=== PATIENT | female | born 1945 | race Caucasian/White ===

== ENCOUNTER 2017-10-02 23:19 | Observation (INO) | payer OTHER ==
[2017-10-03 00:38] LABS: INR 0.95; PROTHROMBIN TIME 12.8 SECONDS (12.4-14.5)
[2017-10-03 00:39] LABS: PARTIAL THROMBOPLASTIN TIME 29.1 SECONDS (26.8-37.9)
[2017-10-03 00:42] LABS: BASO # 0.1 10^3/uL (0.0-0.2); BASO % 0.9 % (0.0-1.0); EOS # 0.2 10^3/uL (0.0-0.50); EOS % 1.6 % (0.0-3.0); HEMATOCRIT 36.2 % (36.0-47.0); HEMOGLOBIN 12.4 g/dl (12.0-15.5); IMMATURE GRANULOCYTE % 0.4 % (0-3.0); LYMPH # 1.8 10^3/uL (1.5-4.5); LYMPH % 13.4 % (24.0-44.0); MEAN CORPUSCULAR HEMOGLOBIN 30.2 pg (27.0-33.0); MEAN CORPUSCULAR HGB CONC 34.3 g/dl (32.0-36.5); MEAN CORPUSCULAR VOLUME 88.3 fl (80.0-96.0); MONO # 1.3 10^3/uL (0.0-0.8); MONO % 9.4 % (0.0-5.0); NEUTROPHILS # 10.2 10^3/uL (1.8-7.7); NEUTROPHILS % 74.3 % (36.0-66.0); PLATELET COUNT, AUTOMATED 291 10^3/uL (150-450); RED CELL DISTRIBUTION WIDTH 14.8 % (11.5-14.5); WHITE BLOOD COUNT 13.8 10^3/uL (4.0-10.0)
[2017-10-03 00:48] LABS: ANION GAP 9 MEQ/L (8-16); BLOOD UREA NITROGEN 26 MG/DL (7-18); CALCIUM LEVEL 9.4 MG/DL (8.8-10.2); CARBON DIOXIDE LEVEL 24 MEQ/L (21-32); CHLORIDE LEVEL 105 MEQ/L (98-107); CPK CREATINE PHOSPHOKINASE 176 U/L (26-192); CREATININE FOR GFR 1.12 MG/DL (0.55-1.30); FREE T4 1.18 NG/DL (0.76-1.46); GLOMERULAR FILTRATION RATE 50.9 (>39); GLUCOSE, FASTING 142 MG/DL (70-100); MAGNESIUM LEVEL 2.2 MG/DL (1.8-2.4); POTASSIUM SERUM 3.6 MEQ/L (3.5-5.1); SODIUM LEVEL 138 MEQ/L (136-145); TROPONIN I < 0.02 NG/ML (< 0.10)
[2017-10-03 00:50] LABS: LACTIC ACID SEPSIS PROTOCOL 2.4 MMOL/L (0.4-2.0)
[2017-10-03 00:54] LABS: CK-MB VALUE MASS 1.7 NG/ML (<3.6); MB/CK RELATIVE INDEX 0.96 (< OR =4)
[2017-10-03] MEDS ORDERED: PERCOCET 5MG/325MG TAB PO (03:30)
[2017-10-03] MEDS ORDERED: MORPHINE 4 MG/ML 1ML VIAL/SYRINGE (J2270) IV (03:30)
[2017-10-03] MEDS ORDERED: ONDANSETRON 4MG/2ML VIAL (J2405) IV (03:30)
[2017-10-03] MEDS ORDERED: ACETAMINOPHEN TAB 650MG DOSE (2X325MG) PO (03:30)
[2017-10-03] MEDS: HEPARIN SOD (PORCINE) 5000 UNITS/ML VIAL SC ×3 (04:57→21:20)
[2017-10-03] MEDS: NS 1,000 ML IV ×2 (05:00→19:57)
[2017-10-03 07:49] LABS: HEMATOCRIT 36.3 % (36.0-47.0); HEMOGLOBIN 12.4 g/dl (12.0-15.5); MEAN CORPUSCULAR HEMOGLOBIN 30.2 pg (27.0-33.0); MEAN CORPUSCULAR HGB CONC 34.2 g/dl (32.0-36.5); MEAN CORPUSCULAR VOLUME 88.5 fl (80.0-96.0); PLATELET COUNT, AUTOMATED 293 10^3/uL (150-450); RED CELL DISTRIBUTION WIDTH 14.7 % (11.5-14.5); WHITE BLOOD COUNT 10.7 10^3/uL (4.0-10.0)
[2017-10-03 08:19] LABS: ANION GAP 6 MEQ/L (8-16); BLOOD UREA NITROGEN 23 MG/DL (7-18); CALCIUM LEVEL 9.3 MG/DL (8.8-10.2); CARBON DIOXIDE LEVEL 26 MEQ/L (21-32); CHLORIDE LEVEL 108 MEQ/L (98-107); CK-MB VALUE MASS 1.3 NG/ML (<3.6); CPK CREATINE PHOSPHOKINASE 162 U/L (26-192); CREATININE FOR GFR 1.01 MG/DL (0.55-1.30); GLOMERULAR FILTRATION RATE 57.4 (>39); GLUCOSE, FASTING 98 MG/DL (70-100); MAGNESIUM LEVEL 2.1 MG/DL (1.8-2.4); SODIUM LEVEL 140 MEQ/L (136-145); TROPONIN I < 0.02 NG/ML (< 0.10)
[2017-10-03 09:30] LABS: ESTIMATED AVERAGE GLUCOSE 117 MG/DL (60-110); HEMOGLOBIN A1c 5.7 %
[2017-10-03 09:36] LABS: KETONE, URINE AUTO RFX NEGATIVE (NEGATIVE); LEUKOCYTE ESTERASE UR AUTO RFX NEGATIVE (NEGATIVE); NITRITE, URINE AUTO RFX NEGATIVE (NEGATIVE); RBC, URINE AUTO RFX 2 /HPF (0-3); SPECIFIC GRAVITY UR AUTO RFX 1.009 (1.002-1.035); SQUAM EPITHELIAL CELL UR AURFX 0 /HPF (0-6); WBC, URINE AUTO RFX 1 /HPF (0-3)
[2017-10-03] MEDS: ATORVASTATIN 20 MG TAB PO (09:57)
[2017-10-03] MEDS: OMEPRAZOLE 20 MG CAP PO (09:57)
[2017-10-03] MEDS: SENOKOT S TAB PO ×2 (09:57→21:20)
[2017-10-03] MEDS: ASCORBIC ACID 500 MG TAB PO (09:58)
[2017-10-03] MEDS: LISINOPRIL 10 MG TAB PO (09:58)
[2017-10-03] MEDS: MAGNESIUM CHLORIDE 64 MG TABCR (SLO MAG) PO (09:58)
[2017-10-04] MEDS: HEPARIN SOD (PORCINE) 5000 UNITS/ML VIAL SC (05:55)
[2017-10-04 06:24] LABS: HEMATOCRIT 35.5 % (36.0-47.0); MEAN CORPUSCULAR HEMOGLOBIN 29.9 pg (27.0-33.0); MEAN CORPUSCULAR HGB CONC 33.8 g/dl (32.0-36.5); MEAN CORPUSCULAR VOLUME 88.5 fl (80.0-96.0); PLATELET COUNT, AUTOMATED 278 10^3/uL (150-450); RED BLOOD COUNT 4.01 10^6/uL (4.00-5.40); RED CELL DISTRIBUTION WIDTH 15.1 % (11.5-14.5); WHITE BLOOD COUNT 9.4 10^3/uL (4.0-10.0)
[2017-10-04 06:42] LABS: ANION GAP 6 MEQ/L (8-16); BLOOD UREA NITROGEN 21 MG/DL (7-18); CALCIUM LEVEL 8.9 MG/DL (8.8-10.2); CARBON DIOXIDE LEVEL 25 MEQ/L (21-32); CHLORIDE LEVEL 111 MEQ/L (98-107); CREATININE FOR GFR 0.87 MG/DL (0.55-1.30); GLOMERULAR FILTRATION RATE > 60.0 (>39); GLUCOSE, FASTING 84 MG/DL (70-100); MAGNESIUM LEVEL 2.1 MG/DL (1.8-2.4); SODIUM LEVEL 142 MEQ/L (136-145)
[2017-10-04] MEDS: MAGNESIUM CHLORIDE 64 MG TABCR (SLO MAG) PO (08:56)
[2017-10-04] MEDS: ATORVASTATIN 20 MG TAB PO (08:56)
[2017-10-04] MEDS: SENOKOT S TAB PO (08:56)
[2017-10-04] MEDS: ASCORBIC ACID 500 MG TAB PO (08:56)
[2017-10-04] MEDS: OMEPRAZOLE 20 MG CAP PO (08:56)
[2017-10-04] MEDS: LISINOPRIL 10 MG TAB PO (08:56)
== END 2017-10-04 12:04 | disposition home or self-care (01) ==
LOC: M ED 23:19 → M ED INP 23:20 → M MSPAV 10-03 10:13
DX: R55 Syncope and collapse (principal); E86.0 Dehydration; Z79.899 Other long term (current) drug therapy; I10 Essential (primary) hypertension; K21.9 Gastro-esophageal reflux disease without esophagitis; Z88.0 Allergy status to penicillin
CPT/HCPCS: 71045

== ENCOUNTER → 2019-04-20 | Outpatient (REF) | payer MEDICARE ==
[~2019-04-20] MED LIST: ATOR1TAB21 PO; CALC600T7 PO; LISI10TA15 PO; LOVE1INJ SC; MAGN64TASA PO; MAGNESIUM OXIDE PO; NAPR-885 PO; OMEP40CA97 PO; PERCOCET PO; TYLE325T5 PO; TYLE500T78 PO; VITA500T PO; VITA500T88 PO
[2019-04-20 16:20] LABS: HEMATOCRIT 41.7 % (36.0-47.0); HEMOGLOBIN 13.5 g/dl (12.0-15.5); MEAN CORPUSCULAR HEMOGLOBIN 30.5 pg (27.0-33.0); MEAN CORPUSCULAR HGB CONC 32.4 g/dl (32.0-36.5); MEAN CORPUSCULAR VOLUME 94.3 fl (80.0-96.0); PLATELET COUNT, AUTOMATED 327 10^3/uL (150-450); RED BLOOD COUNT 4.42 10^6/uL (4.00-5.40); WHITE BLOOD COUNT 9.1 10^3/uL (4.0-10.0)
[2019-04-20 16:59] LABS: ALBUMIN 3.8 GM/DL (3.2-5.2); BILIRUBIN,TOTAL 0.6 MG/DL (0.2-1.0); CALCIUM LEVEL 10.3 MG/DL (8.8-10.2); CHOLESTEROL RISK RATIO 2.043 (<5); CREATININE FOR GFR 0.99 MG/DL (0.55-1.30); GLOMERULAR FILTRATION RATE 58.4 (>39); POTASSIUM SERUM 4.5 MEQ/L (3.5-5.1)
[2019-04-20 17:01] LABS: TOTAL 25(OH) VITAMIN D 55.4 NG/ML (30.0-100.0)
== END ==
LOC: M SFHCCLAY 10:29
PROVIDERS: ATTEND Nurse Practitioner Family
DX: K21.9 Gastro-esophageal reflux disease without esophagitis (principal); I10 Essential (primary) hypertension; E78.49 Other hyperlipidemia; M81.0 Age-related osteoporosis without current pathological fracture

== ENCOUNTER 2020-02-12 11:27 | Emergency (ER) | payer MEDICARE ==
[~2020-02-12] VITALS: Ht 149.9 cm; Wt 53.2 kg
[~2020-02-12 11:27] MED LIST changes: +CALC-212 PO; -CALC600T7 PO; +VITA-243 PO; -VITA500T PO
--- NOTE | 2020-02-12 12:19 | REPVR ---
PROCEDURE INFORMATION: Exam: XR Left Knee Exam date and time: 02/12/2020 11:55 AM Age: 74 years old Clinical indication: Pain; Knee; Left; Additional info: Trauma TECHNIQUE: Imaging protocol: XR Left knee. Views: 4 or more views. COMPARISON: CR Femur 11/08/2013 10:59 AM FINDINGS: Bones/joints: Chondrocalcinosis. Chronic appearing impaction deformity of the medial tibial plateau. Tricompartmental DJD. Diffuse osteopenia. There appears to be a large knee joint effusion. No definite acute fracture. No dislocation. Mild lateral patellar subluxation. Soft tissues: Normal. IMPRESSION: No definite acute fracture is identified. Given the presence of a large knee joint effusion and the limitation due to marked osteopenia, consider further evaluation with CT. Electronically signed by: Criss Kerr On 02/12/2020 12:19:28 PM
--- NOTE | 2020-02-12 13:17 | REPVR ---
PROCEDURE INFORMATION: Exam: CT Left Lower Extremity Without Contrast, Knee Exam date and time: 02/12/2020 12:57 PM Age: 74 years old Clinical indication: Pain; Knee; Left; Additional info: Trauma TECHNIQUE: Imaging protocol: CT of the Left lower extremity without contrast was performed. Exam focused on the knee. Radiation optimization: All CT scans at this facility use at least one of these dose optimization techniques: automated exposure control; mA and/or kV adjustment per patient size (includes targeted exams where dose is matched to clinical indication); or iterative reconstruction. COMPARISON: CR Knee, complete LEFT 02/12/2020 11:46 AM FINDINGS: Bones/joints: Diffuse osteopenia. Chondrocalcinosis. Advanced degenerative change of the medial compartment. Moderate degenerative change of the lateral and patellofemoral compartments. Chronic appearing fracture deformity of the medial tibial plateau. Large knee joint effusion. No acute fracture or dislocation. Soft tissues: Normal. Vasculature: Atherosclerotic vascular calcifications. IMPRESSION: 1. No acute fracture. 2. Tricompartmental DJD, large knee joint effusion, and chondrocalcinosis. 3. Chronic appearing fracture deformity of the medial tibial plateau. Electronically signed by: Criss Kerr On 02/12/2020 13:16:34 PM
[2020-02-12] MEDS ORDERED: IBUPROFEN 400 MG TAB PO ONE (14:45)
[2020-02-12 15:01] VITALS: BP 152/75
== END 2020-02-12 15:33 | disposition home or self-care (01) ==
LOC: M ED 11:27 → EDBD 11:27 → M ED 15:33
DX: Z87.81 Personal history of (healed) traumatic fracture (principal); M25.462 Effusion, left knee; I10 Essential (primary) hypertension; M19.90 Unspecified osteoarthritis, unspecified site; Z85.828 Personal history of other malignant neoplasm of skin; M17.12 Unilateral primary osteoarthritis, left knee; M11.262 Other chondrocalcinosis, left knee; Z79.899 Other long term (current) drug therapy; Z88.0 Allergy status to penicillin

== ENCOUNTER 2020-02-28 02:44 | Inpatient (IN) | payer MEDICARE ==
[~2020-02-28] VITALS: Ht 149.9 cm; Wt 57.0 kg
--- NOTE | 2020-02-28 04:35 | REPVR ---
PROCEDURE INFORMATION: Exam: XR Left Femur Exam date and time: 02/28/2020 3:55 AM Age: 74 years old Clinical indication: Pain; Thigh; Left; Additional info: Rule out fracture TECHNIQUE: Imaging protocol: XR Left femur. Views: 2 views. COMPARISON: CR Femur 11/08/2013 10:59 AM FINDINGS: Bones/joints: There is a proximal femoral intramedullary cristiana with a cephalomedullary screw and a single distal locking screw. There is no lucency around the hardware. No acute fractures are identified. There is a large knee joint effusion. Please see separate report for the x-ray of the knee. Soft tissues: Unremarkable. Vasculature: Vascular calcifications are noted. IMPRESSION: 1. Intramedullary cristiana in the proximal femur. No acute fractures identified. 2. Left knee joint effusion. Please see separate report for the x-ray of the knee. Electronically signed by: Savi Mccain On 02/28/2020 04:35:16 AM
--- NOTE | 2020-02-28 04:42 | REPVR ---
PROCEDURE INFORMATION: Exam: XR Left Knee Exam date and time: 02/28/2020 3:55 AM Age: 74 years old Clinical indication: Pain; Knee; Left; Additional info: Rule out fracture TECHNIQUE: Imaging protocol: XR Left knee. Views: 4 or more views. COMPARISON: 1. CR - Knee, complete LEFT 02/12/2020 11:46:[address]-Knee WITHOUT CONTRAST LEFT 02/12/2020 12:53 PM FINDINGS: Bones/joints: A large knee joint effusion is again seen. A depression and medial downsloping of the medial tibial plateau are again noted, unchanged from the prior exams, and likely the sequela of a prior fracture. No definite acute fractures are identified. Osteophytes are seen in all 3 compartments. Calcifications are seen around the knee, consistent with chondrocalcinosis and synovial calcifications, as seen on the prior exams. The bones are osteopenic. Soft tissues: Normal. IMPRESSION: 1. Large knee joint effusion, as seen previously. 2. Osteophytes in all 3 compartments, which may be due to osteoarthritis but considering the extensive chondrocalcinosis and synovial calcification, may be due to CPPD. 3. Depression and medial downsloping of the medial tibial plateau, unchanged and likely the sequela of prior trauma. Electronically signed by: Savi Mccain On 02/28/2020 04:42:11 AM
--- NOTE | 2020-02-28 04:43 | REPVR ---
PROCEDURE INFORMATION: Exam: XR Left Tibia and Fibula Exam date and time: 02/28/2020 3:56 AM Age: 74 years old Clinical indication: Pain; Lower leg; Left; Additional info: Rule out fracture TECHNIQUE: Imaging protocol: XR Left tibia and fibula. Views: 2 views. COMPARISON: CT-Knee WITHOUT CONTRAST LEFT 02/12/2020 12:53 PM FINDINGS: Bones/joints: The bones are osteopenic. Depression and medial downsloping of the medial tibial plateau are noted. Please see separate report for x-ray of the left knee. No acute fractures are identified. Osteophytes are seen anteriorly at the tibiotalar joint. Soft tissues: Unremarkable. IMPRESSION: 1. No acute fracture identified. 2. Please see separate report for additional findings at the left knee. Electronically signed by: Savi Mccain On 02/28/2020 04:43:42 AM
[2020-02-28] MEDS ORDERED: ACETAMINOPHEN 325 MG TAB PO ONE (04:45)
[2020-02-28] MEDS ORDERED: ACET-897 PO (05:39)
[2020-02-28] MEDS ORDERED: MORPHINE 2 MG/ML 1ML VIAL (J2270) IV PRN (06:15)
--- NOTE | 2020-02-28 06:15 | HPEPDOC ---
[facility] Medical History & Physical Date of Admission Feb 28, 2020 Date of Service: Feb 28, 2020 Primary Care Physician: Rosario Burnham Attending Physician: ALONDRA NATH MD History and Physical TIME OF SERVICE: 615AMP CHIEF COMPLAINT: knee pain HISTORY OF PRESENT ILLNESS: This 74-year-old female presented with complaints of worsening left knee pain. Today the pain as 10 out of 10 in severity and did not improve despite taking Tylenol. She had similar symptoms on February 11, and saw Dr. Witt who recommended crutches and putting her knee in an immobilizer. The plan was for her to return to his office in a couple of weeks for re-evaluation, but last night the pain was not berable. called the Orthopedic surgeon business continuity director who recommended CT of the knee and calling during the day. 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 HOME MEDICATIONS: Please see below. PHYSICAL EXAMINATION: VITAL SIGNS: Please see below. GEN: well-nourished / well developed/ NAD INTEGUMENT: not flushed/ not jaundice HEENT: lips acyanotic /mucus membranes moist and pink / sclera anicteric CVS: RRR/NMRG/ no JVP LUNGS: able to speak full sentences without stopping to take a breath / no coughing / lungs are clear to auscultation bilaterally on room air ABDOMEN: Contour (flat) MSK/EXTREMITIES: NCAT / left knee swollen NEURO: CN 2-12 are grossly intact / speech is not dysarthric PSYCH: alert and oriented to person place and time/ able to understand and follow all commands LABORATORY DATA: See below. IMAGING: Xray tib/fib "IMPRESSION: 1. No acute fracture identified. 2. Please see separ ate report for additional findings at the left knee." Knee xray "IMPRESSION: 1. Large knee joint effusion, as seen previously. 2. Osteophytes in all 3 compartments, which may be due to osteoarthritis but considering the extensive chondrocalcinosis and synovial calcification, may be due to CPPD. 3. Depression and medial downsloping of the medial tibial plateau, unchanged and likely the sequela of prior trauma." Feumr xray "IMPRESSION: 1. Intramedullary cristiana in the proximal femur. No acute fractures identified. 2. Left knee joint effusion. Please see separate report for the x-ray of the knee. " MICROBIOLOGY: Please see below. ASSESSMENT: is a 74 yr old w a hx of Osteoporosis, HTN, Dyslipidemia, OA, GERD and chronic left tibial fx who presented w c/o worsening left knee pain and swelling. PLAN: 1. Acute on chronic left knee pain Plan: admit to medical floor / will ask day time team to f/u repeat CT of knee and call , will keep pt NPO in the meanwhile and order IVF and morphine 2. Chronic HTN Plan: amlodipine 3. Dyslipidemia Plan: atorvastatin 4. Osteoporosis Plan: Ca w vitamin D DVT PROPHYLAXIS: SCDs DISPOSITION: home after more than 2 midnight's stay Home Medications Scheduled Ascorbic Acid (Vitamin C) 500 Mg Tab, 500 MG PO DAILY Atorvastatin Calcium (Atorvastatin Calcium) 20 Mg Tab, 20 MG PO DAILY Calcium Carbonate/Vitamin D3 (Calcium 600-Vit D3 200 Tablet) 1 Tab Tab, 1 TAB PO DAILY Lisinopril/Hydrochlorothiazide (Lisinopril-Hctz 10-12.5 mg Tab) 1 Tab Tab, 1 TAB PO DAILY Magnesium Chloride (Mag64) 64 Mg Tabcr, 64 MG PO DAILY Naproxen (Naproxen) 500 Mg Tab, 500 MG PO DAILY Omeprazole (Omeprazole) 40 Mg Cap, 40 MG PO DAILY Scheduled PRN Acetaminophen (Tylenol Extra Strength) 500 Mg Tablet, 1,000 MG PO Q6H PRN for PAIN Oxycodone/Acetaminophen (Oxycodone-Acetaminophen 5-325) 1 Each Tablet, 1-2 TAB PO Q6HP PRN for MODERATE/SEVERE PAIN (PS 5-10) Allergies Coded Allergies: Penicillins (Verified Allergy, Intermediate, 02/12/20) amoxicillin (Verified Allergy, Intermediate, itching, 02/12/20) A-FIB/CHADSVASC A-FIB History Current/History of A-Fib/PAF?: No Current PO Anticoag Therapy: No ALONDRA NATH MD Feb 28, 2020 06:15
[2020-02-28 06:29] LABS: BASO # 0.1 10^3/uL (0.0-0.2); BASO % 0.5 % (0.0-1.0); EOS % 0.2 % (0.0-3.0); HEMATOCRIT 35.8 % (36.0-47.0); LYMPH # 0.8 10^3/uL (1.5-5.0); LYMPH % 6.4 % (24.0-44.0); MEAN CORPUSCULAR HEMOGLOBIN 30.7 pg (27.0-33.0); MEAN CORPUSCULAR HGB CONC 33.5 g/dl (32.0-36.5); MEAN CORPUSCULAR VOLUME 91.6 fl (80.0-96.0); MONO # 0.6 10^3/uL (0.0-0.8); MONO % 4.3 % (0.0-5.0); NEUTROPHILS # 11.3 10^3/uL (1.5-8.5); PLATELET COUNT, AUTOMATED 404 10^3/uL (150-450); RED BLOOD COUNT 3.91 10^6/uL (4.00-5.40); WHITE BLOOD COUNT 12.9 10^3/uL (4.0-10.0)
--- NOTE | 2020-02-28 06:43 | REPVR ---
PROCEDURE INFORMATION: Exam: CT Left Lower Extremity Without Contrast, Knee Exam date and time: 02/28/2020 6:04 AM Age: 74 years old Clinical indication: Pain; Knee; Left; Additional info: Assess tibial plateau fracture TECHNIQUE: Imaging protocol: CT of the Left lower extremity without contrast was performed. Exam focused on the knee. Radiation optimization: All CT scans at this facility use at least one of these dose optimization techniques: automated exposure control; mA and/or kV adjustment per patient size (includes targeted exams where dose is matched to clinical indication); or iterative reconstruction. COMPARISON: 1. CT-Knee WITHOUT CONTRAST LEFT 02/12/2020 12:53 PM 2. CR - Femur LEFT 02/28/2020 3:19:39 AM 3. CR - Knee, complete LEFT 02/28/2020 3:19:39 AM FINDINGS: Bones/joints: A large knee joint effusion is again seen, with calcification and peripheral high density consistent with synovial hypertrophy and synovial calcification. There is evidence of chondrocalcinosis, with calcification in the hyaline cartilage as well as the fibrocartilage of the menisci. No acute fracture is identified. There is a deformity of the medial tibial plateau, with depression and medial downsloping which appears unchanged from the prior exam, and is probably the sequela of previous trauma. Osteophytes, subchondral sclerosis, and subchondral cystic changes are seen in all 3 compartments of the knee. Soft tissues: The soft tissues appear unremarkable. IMPRESSION: 1. No acute fractures identified. Chronic depression and medial downsloping of the medial tibial plateau, unchanged from the prior exam, and likely the sequela of remote trauma. 2. Large knee joint effusion with synovial hypertrophy and synovial calcification, in addition to chondrocalcinosis in the hiatal in cartilage and fibrocartilage in the knee, which is most suggestive of CPPD, although the findings are not entirely specific. 3. Osteophytes, subchondral sclerosis, and subchondral cystic changes, which may be related to CPPD arthropathy or osteoarthritis. Electronically signed by: Savi Mccain On 02/28/2020 06:43:33 AM
[2020-02-28 06:45] LABS: CALCIUM LEVEL 9.9 MG/DL (8.8-10.2); CREATININE FOR GFR 1.03 MG/DL (0.55-1.30); GLOMERULAR FILTRATION RATE 55.6 (>39); POTASSIUM SERUM 5.1 MEQ/L (3.5-5.1)
[2020-02-28] MEDS: NS 1,000 ML IV SCH ×2 (07:22→20:59)
[2020-02-28 07:23] LABS: INR 0.92; PROTHROMBIN TIME 12.5 SECONDS (12.5-14.3)
[2020-02-28 07:24] LABS: PARTIAL THROMBOPLASTIN TIME 27.9 SECONDS (24.2-38.5)
[2020-02-28] MEDS: OMEPRAZOLE 20 MG CAP PO SCH (09:06)
[2020-02-28] MEDS: ATORVASTATIN 20 MG TAB PO SCH (09:07)
--- NOTE | 2020-02-28 09:20 | IPNPDOC ---
Text Note Date of Service The patient was seen on 02/28/20. NOTE CC: Knee pain Subjective: Ms. Verito Wood is a 74 yr old female who presented to the ED with left knee pain. Today, the patient continued to have left knee pain. She describes the pain as constant and non-stop, sharp, and swollen more than her right. A pillow underneath her left knee relieves the pain, but nothing makes it worse. She states that the pain is a 4/10, which was better than when she came to the hospital. She states that she has been given Tylenol for the pain. ROS: General: Positive for weakness, denies fever, chills HEENT: Denies headaches, lightheadedness Cardiovascular: Denies chest pain, palpitations, leg swelling Respiratory: Denies shortness of breath, coughing, wheezing GI: Positive for nausea, denies vomiting, abdominal pain, constipation, diarrhea Neuro: Denies numbness, tingling Objective: Vitals: See below General: Patient supine on bed, in mild distress, alert and oriented x3 Cardiovascular: RRR, normal S1 and S2, no murmurs or gallops Respiratory: Lungs clear to auscultation bilaterally, no wheezing or crackles GI: Normal bowel sounds x4, nontender, nondistended, no hepatomegaly Extremities: Left knee effusion w/ pain to palpitation, no erythema present, no effusion on right knee Assessment: Ms. Verito Wood is a 74 yr. old female w/ PMHx of osteoporosis, dyslipidemia, hypertension who presents to the ED with left knee pain. She is found to have left extremity chondrocalcinosis on x-ray which is concerning for CPPD. Plan: 1. Left knee pain -x-ray of left knee shows chondrocalcinosis, which may indicate CPPD (pseudog out) -Ortho to evaluate -Will be managed pain control; will make adjustments 2. Chronic Hypertension -BP was 144/80 -Continue amlodipine 3. Dyslipidemia -Continue atorvastatin 4. Osteoporosis -Continue calcium w/ vitamin D DVT Prophylaxis: -SCDs Disposition: - Ortho evaluation - c/w PT - Pain control VS,Fishbone, I+O VS, Fishbone, I+O Laboratory Tests 02/28/20 06:05 Vital Signs Date Time Temp Pulse Resp B/P (MAP) Pulse Ox O2 Delivery O2 Flow Rate FiO2 02/28/20 09:04 16 10/22/20 07:15 97.9 103 144/80 (101) 96 Room Air GME ATTESTATION GME ATTESTATION My faculty preceptor for this patient encounter was physically present during the encounter and was fully available. All aspects of the patient interview, examination, medical decision making process, and medical care plan development were reviewed and approved by the faculty preceptor. The faculty preceptor is aware and concurs with the plan as stated in the body of this note and will attest to such by his/her cosignature. ATTENDING NOTE I, Robert Grider, have independently examined this patient and performed my own physical exam, as well as reviewed the documentation and edited where necessary. I have discussed in detail with the resident / student the findings and plan of treatment as documented by the resident / student and edited their note. I agree with their findings and treatment plan and have edited their documentation. I will continue to follow the patient during this hospital stay. Discussed case with orthopedic surgery - Patient will be evaluated tomorrow morning] - Will continue with physical therapy and occupational therapy - Will adjust medications for better pain control - Anticipate outpatient surgical intervention JOHN MACIEL OMS-IV Feb 28, 2020 09:20 ROBERT GRIDER MD Feb 28, 2020 16:00
[2020-02-28] MEDS ORDERED: PERCOCET 5MG/325MG TAB PO PRN (14:00)
[2020-02-28] MEDS: CALCIUM/VITAMIN D 500 MG TAB PO SCH (15:22)
[2020-02-28] MEDS: PERCOCET 5MG/325MG TAB PO PRN ×2 (15:24→21:37)
[2020-02-28 15:30] VITALS: BP 125/68
[2020-02-28 20:00] VITALS: BP 121/92
[2020-02-29 05:47] VITALS: BP 162/79
[2020-02-29] MEDS: PERCOCET 5MG/325MG TAB PO PRN ×2 (06:03→13:41)
[2020-02-29 06:15] LABS: HEMATOCRIT 33.5 % (36.0-47.0); HEMOGLOBIN 10.7 g/dl (12.0-15.5); MEAN CORPUSCULAR HEMOGLOBIN 29.7 pg (27.0-33.0); MEAN CORPUSCULAR HGB CONC 31.9 g/dl (32.0-36.5); MEAN CORPUSCULAR VOLUME 93.1 fl (80.0-96.0); PLATELET COUNT, AUTOMATED 378 10^3/uL (150-450); WHITE BLOOD COUNT 10.6 10^3/uL (4.0-10.0)
[2020-02-29 06:34] LABS: ERYTHROCYTE SEDIMENTATION RATE 13 mm/hr (0-30)
[2020-02-29 06:43] LABS: BLOOD UREA NITROGEN 16 MG/DL (7-18); C REACTIVE PROTEIN QUANTITATIV 2.39 MG/DL (0.00-0.30); CALCIUM LEVEL 9.1 MG/DL (8.8-10.2); CARBON DIOXIDE LEVEL 28 MEQ/L (21-32); CHLORIDE LEVEL 103 MEQ/L (98-107); CREATININE FOR GFR 0.87 MG/DL (0.55-1.30); GLOMERULAR FILTRATION RATE > 60.0 (>39); GLUCOSE, FASTING 79 MG/DL (70-100); POTASSIUM SERUM 4.4 MEQ/L (3.5-5.1); SODIUM LEVEL 136 MEQ/L (136-145)
[2020-02-29] MEDS: CALCIUM/VITAMIN D 500 MG TAB PO SCH (10:04)
[2020-02-29] MEDS: ATORVASTATIN 20 MG TAB PO SCH (10:04)
[2020-02-29] MEDS: OMEPRAZOLE 20 MG CAP PO SCH (10:04)
[2020-02-29] MEDS ORDERED: PERCOCET PO (10:07)
--- NOTE | 2020-02-29 11:20 | DS.PDOC ---
Discharge Summary General Date of Admission Feb 28, 2020 at 06:10 Date of Discharge Feb 29, 2020 Attending Physician: ROBERT LI MD Specialist/Consultants Involve: JEAN-CLAUDE MCCAIN MD Discharge Summary PROCEDURES PERFORMED DURING STAY: None. ADMITTING DIAGNOSES: 1. L Knee Pain w. Effusion 2. HTN 3. Osteoporosis 4. Dislipidemia 5. GERD DISCHARGE DIAGNOSES: 1. L Knee Pain w. Effusion 2. HTN 3. Osteoporosis 4. Dislipidemia 5. GERD COMPLICATIONS/CHIEF COMPLAINT: Knee Pain. HISTORY OF PRESENT ILLNESS: The patient is a 75yo F who is experiencing acute L knee pain. She began to notice a distinct swelling and growth in her L knee, and saw a Dr. Witt on Feb 11. She was recommended to use crutches and put her knee in an immobilizer. She was expected to return in a few weeks for followup, but on February 27 the pain worsened to a severity of 10/10 that was not relieved with Tylenol, and she came to the hospital. Dr. Shah called the Orthopedic surgeon. The hospitalist team was called for admission plan. HOSPITAL COURSE: The patient presented with a large joint effusion in her L knee. She was given one dose of 2mg morphine sulfate IV to treat the pain. After admission, her pain control was changed to Percocet 5mg/325mg q6h PRN PO. Orthopedics was consulted to evaluate her knee. XRays were ordered for her tibia/fibula, knee and femur. The patient received Atorvastatin to treat her hypolipidemia, Oscal D for osteoporosis, and omeprazole to treat her GERD. At examination the morning of Feb 28, the patients pain was greatly decreased to a 2/10. The L knee was not tender to palpation. The patient with with Physical Therapy on the morning of Feb 29, 2020 and was cleared for discharge feeling much better. She has crutches at home, which were recommended. DISCHARGE MEDICATIONS: Please see below. ALLERGIES: Please see below. PHYSICAL EXAMINATION ON DISCHARGE: VITAL SIGNS: Please see below. GENERAL: The patient is alert and oriented. No acute distress. She is lying comfortably in bed, with her legs propped by a pillow. There is no visible cyanosis HEENT: CN II-XII are grossly intact. Her speech is fluid without hoarseness. CARDIOVASCULAR EXAMINATION: RRR. S1 and S3 sounds are heard. No murmurs, rubs or gallops are noted. RESPIRATORY EXAMINATION: Lungs are clear to auscultation in all lung resendez. No wheezing, rales, rhonchi or rubs are noted bilaterally. EXTREMITIES: There is a large joint effusion in her L knee attributed to pseudogout. SKIN: The skin is pink with no signs of cyanosis. Skin has some dryness. She has some solar lentigines on both upper and lower extremities bilaterally. LABORATORY DATA: Please see below. IMAGING: XR L Tibia/Fibula, 02.28.[address] Mccain "Impression: 1. No acute fracture identified. 2. Please see seperate report for additional findings at the left knee" XR L Knee, 02.28.[address] Mccain "Impression: 1. Large knee joint effusion, as seen previously. 2. Osteophytes in all 3 compartments, which may be due to osteoarthritis but considering the extensive chondrocalcinosis and synovial calcification, may be due to CPPD. 3. Depression and medial downsloping of the medial tibial plateau, unchanged and likely the sequela of prior trauma." XR Femur, 02.28.[address] Mccain "IMPRESSION: 1. Intramedullary cristiana in the proximal femur. No acute fractures identified. 2. Left knee joint effusion. Please see separate report for the x-ray of the knee." CT Left Lower Extremity Without Contrast, 02.28.[address] Mccain. "1. No acute fractures identified. Chronic depression and medial downsloping of the medial tibial plateau, unchanged from the prior exam, and likely the sequela of remote trauma. 2. Large knee joint effusion with synovial hypertrophy and synovial calcification, in addition to chondrocalcinosis in the hiatal in cartilage and fibrocartilage in the knee, which is most suggestive of CPPD, although the findings are not entirely specific. 3. Osteophytes, subchondral sclerosis, and subchondral cystic changes, which may be related to CPPD arthropathy or osteoarthritis." PROGNOSIS: Good. ACTIVITY: As tolerated. DISCHARGE INSTRUCTIONS: 1. Give 5d of Percocet, 5mg/325mg q6h PRN PO 2. Followup with PCP 3. Follow up with Ortho ITEMS TO FOLLOWUP ON ON OUTPATIENT: 1. L Knee pain w/ effusion 2. HTN 3. Osteoporosis 4. Dyslipidemia 5. GERD DISCHARGE CONDITION: Stable. TIME SPENT ON DISCHARGE: 30 minutes. Vital Signs/I&Os Vital Signs Date Time Temp Pulse Resp B/P (MAP) Pulse Ox O2 Delivery O2 Flow Rate FiO2 02/29/20 06:33 18 02/29/20 05:47 98.4 92 162/79 (106) 96 Room Air I&O- Last 24 Hours up to 6 AM 02/29/20 06:00 Intake Total 1050 ml Output Total 1 ml Balance 1049 ml Laboratory Data Labs 24H Laboratory Tests 2 02/29/20 05:32: Nucleated Red Blood Cells % (auto) 0.0, Erythrocyte Sedimentation Rate 13, Anion Gap 5L, Glomerular Filtration Rate > 60.0, Calcium Level 9.1, C-Reactive Protein, Quantitative 2.39H CBC/BMP Laboratory Tests 02/29/20 05:32 Discharge Medications Scheduled Ascorbic Acid (Vitamin C) 500 Mg Tab, 500 MG PO DAILY, (Reported) Atorvastatin Calcium (Atorvastatin Calcium) 20 Mg Tab, 20 MG PO DAILY, (Reported) Calcium Carbonate/Vitamin D3 (Calcium 600-Vit D3 200 Tablet) 1 Tab Tab, 1 TAB PO DAILY, (Reported) Lisinopril/Hydrochlorothiazide (Lisinopril-Hctz 10-12.5 mg Tab) 1 Tab Tab, 1 TAB PO DAILY, (Reported) Magnesium Chloride (Mag64) 64 Mg Tabcr, 64 MG PO DAILY, (Reported) Naproxen (Naproxen) 500 Mg Tab, 500 MG PO DAILY, (Reported) Omeprazole (Omeprazole) 40 Mg Cap, 40 MG PO DAILY, (Reported) Scheduled PRN Acetaminophen (Tylenol Extra Strength) 500 Mg Tablet, 1,000 MG PO Q6H PRN for PAIN, (Reported) Oxycodone/Acetaminophen (Oxycodone-Acetaminophen 5-325) 1 Each Tablet, 1-2 TAB PO Q6HP PRN for MODERATE/SEVERE PAIN (PS 5-10) Allergies Coded Allergies: Penicillins (Verified Allergy, Intermediate, 02/12/20) amoxicillin (Verified Allergy, Intermediate, itching, 02/12/20) GME ATTESTATION GME ATTESTATION My faculty preceptor for this patient encounter was physically present during the encounter and was fully available. All aspects of the patient interview, examination, medical decision making process, and medical care plan development were reviewed and approved by the faculty preceptor. The faculty preceptor is aware and concurs with the plan as stated in the body of this note and will attest to such by his/her cosignature. ATTENDING NOTE I, Robert Li, have independently examined this patient and performed my own physical exam, as well as reviewed the documentation and edited where necessary. I have discussed in detail with the resident / student the findings and plan of treatment as documented by the resident / student and edited their note. I agree with their findings and treatment plan and have edited their documentation. I will continue to follow the patient during this hospital stay. Time spent on discharge 35 minutes DAYANA RODRIGUEZ Feb 29, 2020 11:02 ROBERT LI MD Feb 29, 2020 15:50
--- NOTE | 2020-03-03 07:55 | CR ---
CHIEF COMPLAINT: Left knee pain. HISTORY OF PRESENT ILLNESS: This is a 74-year-old female who had previously seen me in the office about a week ago. She was having a knee osteoarthritis exacerbation. She was in the emergency department a few days before that. Now, she presented to the hospital with severe left knee pain. She has not had any fevers, chills, or other constitutional symptoms. She has no focal erythema around the knee. PAST MEDICAL HISTORY/MEDICATIONS/ALLERGIES/PAST SURGICAL HISTORY AND SOCIAL HISTORY: Per the hospitalist consultation. PHYSICAL EXAMINATION: This is a 74-year-old female who appears well. She appears comfortable and in no acute distress. She is afebrile. The knee has a moderate effusion. There is no pain with micromotion of the knee. There is pain to palpation of the medial tibial plateau. No pain with hip log roll testing. Normal sensation and motor function of the foot. Foot is warm and well-perfused. Good pedal pulses. Range of motion of the knee is full extension to at least 50 degrees of flexion at the moment, but pain at end flexion. There is mild warmth, but no redness or drainage. IMAGING DATA: CT scan was reviewed. This shows no change versus last CT scan done recently. There is severe collapse of the medial plateau with advanced arthritis of the knee. LABORATORY DATA: CRP 2. ESR 13. White blood cell count 12 trending down. ASSESSMENT AND PLAN: This is 74-year-old female who appears to have an acute exacerbation of her preexisting severe left knee osteoarthritis. I have an overall low suspicion that there is any kind of acute infection; although, I can certainly follow the patient along while here in the hospital to ensure that her inflammatory markers are continuing to stay relatively low and the exam remains unchanged. I recommend pain control and outpatient follow up with the arthroplasty surgeon. SUE
== END 2020-02-29 14:10 | disposition home or self-care (01) | DRG 565 ==
LOC: M ED 02:44 → M ED INP 06:10 → ENRESERV 14:56 → M MS5PR 15:00
PROVIDERS: ADMIT Internal Medicine; ATTEND Internal Medicine
DX: M25.462 Effusion, left knee (principal); I50.32 Chronic diastolic (congestive) heart failure; M25.562 Pain in left knee; M11.262 Other chondrocalcinosis, left knee; I11.0 Hypertensive heart disease with heart failure; K21.9 Gastro-esophageal reflux disease without esophagitis; M81.0 Age-related osteoporosis without current pathological fracture; E78.5 Hyperlipidemia, unspecified; Z79.899 Other long term (current) drug therapy; Z88.0 Allergy status to penicillin; I34.0 Nonrheumatic mitral (valve) insufficiency; I27.20 Pulmonary hypertension, unspecified; M17.12 Unilateral primary osteoarthritis, left knee

== ENCOUNTER → 2020-03-05 | Outpatient (REF) | payer MEDICARE ==
[~2020-03-05] MED LIST changes: +ACET-897 PO; +OXYC1TAB23 PO
[2020-03-05 16:48] LABS: BASO # 0.1 10^3/uL (0.0-0.2); EOS # 0.2 10^3/uL (0.0-0.5); HEMATOCRIT 34.9 % (36.0-47.0); HEMOGLOBIN 11.3 g/dl (12.0-15.5); LYMPH # 0.6 10^3/uL (1.5-5.0); LYMPH % 5.7 % (24.0-44.0); MEAN CORPUSCULAR HEMOGLOBIN 30.1 pg (27.0-33.0); MEAN CORPUSCULAR HGB CONC 32.4 g/dl (32.0-36.5); MEAN CORPUSCULAR VOLUME 92.8 fl (80.0-96.0); MONO # 1.2 10^3/uL (0.0-0.8); MONO % 11.6 % (0.0-5.0); NEUTROPHILS # 8.4 10^3/uL (1.5-8.5); NEUTROPHILS % 79.3 % (36.0-66.0); PLATELET COUNT, AUTOMATED 477 10^3/uL (150-450); RED BLOOD COUNT 3.76 10^6/uL (4.00-5.40); WHITE BLOOD COUNT 10.6 10^3/uL (4.0-10.0)
[2020-03-05 16:59] LABS: ALBUMIN 3.5 GM/DL (3.2-5.2); BILIRUBIN,TOTAL 0.5 MG/DL (0.2-1.0); C REACTIVE PROTEIN QUANTITATIV 4.19 MG/DL (0.00-0.30); CALCIUM LEVEL 10.1 MG/DL (8.8-10.2); CREATININE FOR GFR 1.05 MG/DL (0.55-1.30); GLOMERULAR FILTRATION RATE 54.4 (>39); POTASSIUM SERUM 4.4 MEQ/L (3.5-5.1); TOTAL PROTEIN 6.7 GM/DL (6.4-8.2); URIC ACID 3.8 MG/DL (2.6-6.0)
== END ==
LOC: M SFHCCLAY 10:58
PROVIDERS: ATTEND Nurse Practitioner Family
DX: M25.462 Effusion, left knee (principal); M17.12 Unilateral primary osteoarthritis, left knee
CPT/HCPCS: 80053; 84550; 85025; 86140; 99496; G0463

== ENCOUNTER 2020-03-09 14:23 | Observation (INO) | payer MEDICARE ==
[~2020-03-09] VITALS: Ht 154.9 cm; Wt 53.2 kg
[~2020-03-09 14:23] MED LIST changes: -OXYC1TAB23 PO
[2020-03-09] MEDS ORDERED: NS 1,000 ML IV ONE (15:15)
[2020-03-09] MEDS ORDERED: MORPHINE 4 MG/ML 1ML VIAL/SYRINGE (J2270) IV ONE ×2 (15:15→16:15)
[2020-03-09 15:51] LABS: BASO % 0.4 % (0.0-1.0); HEMOGLOBIN 12.4 g/dl (12.0-15.5); LYMPH # 0.7 10^3/uL (1.5-5.0); LYMPH % 6.3 % (24.0-44.0); MEAN CORPUSCULAR HEMOGLOBIN 29.7 pg (27.0-33.0); MEAN CORPUSCULAR HGB CONC 33.5 g/dl (32.0-36.5); MEAN CORPUSCULAR VOLUME 88.7 fl (80.0-96.0); MONO # 0.7 10^3/uL (0.0-0.8); MONO % 6.1 % (0.0-5.0); NEUTROPHILS # 9.2 10^3/uL (1.5-8.5); NEUTROPHILS % 86.4 % (36.0-66.0); PLATELET COUNT, AUTOMATED 469 10^3/uL (150-450); RED BLOOD COUNT 4.17 10^6/uL (4.00-5.40); WHITE BLOOD COUNT 10.6 10^3/uL (4.0-10.0)
[2020-03-09 16:13] LABS: ERYTHROCYTE SEDIMENTATION RATE 23 mm/hr (0-30)
[2020-03-09 16:17] LABS: ALBUMIN 3.7 GM/DL (3.2-5.2); BILIRUBIN,DIRECT 0.2 MG/DL (0.0-0.2); BILIRUBIN,TOTAL 0.6 MG/DL (0.2-1.0); TOTAL PROTEIN 7.3 GM/DL (6.4-8.2)
--- NOTE | 2020-03-09 16:45 | REP ---
INDICATION: left knee pain/swelling. COMPARISON: Comparison CT images of the left knee February 12, 2020. Comparison knee radiograph February 28, 2020 and February 12, 2020.. TECHNIQUE: Cross-table lateral and AP radiographs of the left knee are presented. FINDINGS: Two views of the left knee demonstrate a very large joint effusion distending the suprapatellar bursa. There is extensive chondrocalcinosis again noted at the anterior and posterior joint lines. There is 3 compartment osteoarthritis. Chronic depression of the medial tibial plateau is again seen. This is unchanged from prior radiographs 02/28/[address] 02/12/2020. No acute fracture is seen. Diffuse osteopenia is noted.. . . IMPRESSION: Large joint effusion. Three compartment osteoarthritis. Extensive chondrocalcinosis. Old posttraumatic or old erosive deformity flattening or depressing the medial tibial plateau unchanged from comparison studies. No acute fracture or subluxation.. <Electronically signed by Sunil Salmon > 03/09/20 1550
[2020-03-09] MEDS ORDERED: OXYC1TAB23 PO (17:38)
[2020-03-09] MEDS ORDERED: MOM 30ML SUSPENSION UDC PO PRN (17:45)
[2020-03-09] MEDS ORDERED: MAALOX 30 ML SUSP *UDC PO PRN (17:45)
[2020-03-09] MEDS ORDERED: ACETAMINOPHEN TAB 650MG DOSE (2X325MG) PO PRN (17:45)
--- NOTE | 2020-03-09 18:20 | HPEPDOC ---
[facility] Medical History & Physical Date of Admission Mar 09, 2020 Date of Service: Mar 09, 2020 History and Physical CHIEF COMPLAINT: L knee pain and swelling HISTORY OF PRESENT ILLNESS: 74 yo F with a hx of severe osteoarthritis of L knee, GERD, chronic HTN, chronic diastolic CHF, presented to ED with severe L knee pain and swelling. She has been seen in orthopedics clinic and was advised she needed a L knee arthroplasty. She was admitted to [facility] on 02/27 for same issues and was assessed by orthopedic service. CT scan showed severe collapse of medial plateau with advanced arthritis. Recommendation was made for outaptient knee replacement. Pateint states that her pain has become intolerable and she required crutches at home to ambulate. She denies fevers, chills, but endorses severe ROM limitation due to pain, and inability to bear weight. On arrival, she is afebrile, BP 150/85, T 97.5. HR 102. RR 22. WBC 10.6. PLT 469. CRP 1.0. ESR 23. LA 3.5. She was given 1L NS in the ER. PAST MEDICAL HISTORY: HTN GERD Chronic diastolic CHF mild pulmonary HTN Osteoarthritis L knee PAST SURGICAL HISTORY: L hip surgery L knee arthroscopy for torn meniscus SOCIAL HISTORY: Patient denies smoking Patient denies etoh use Patient denies illicit drug use Retired reed, lives with FAMILY HISTORY: Father - , [place] age 73 ALLERGIES: Please see below. REVIEW OF SYSTEMS: CONSTITUTIONAL: patient denies fevers, chills HEENT: patient denies blurred vision, loss of vision, headache,. CARDIOVASCULAR: patient denies chest pain, palpitations. RESPIRATORY: patient denies shortness of breath, cough, hemoptysis. GASTROINTESTINAL: patient denies abdominal pain, n/v/d, blood in stool. GENITOURINARY: patient denies dysuria, discharge. SKIN: patient denies rashes. MUSCULOSKELETAL: Severe 9 out of 10 left knee pain and swelling. Reduced range of motion. Unable to walk, uses crutches at home. NEUROLOGICAL: patient denies focal weakness, numbness, seizures. PSYCHIATRIC: patient denies SI/HI. ENDOCRINE: patient denies polyuria, heat intolerance, cold intolerance. HEMATOLOGIC/LYMPHATIC: patient denies easy bruising. HOME MEDICATIONS: Please see below. PHYSICAL EXAMINATION: VITAL SIGNS: please see below General: NAD, comfortable HEENT: PERRLA, EOMI, sclerae clear Neck: supple, normal ROM, no JVD Respiratory: lungs CTAB, no wheeze, no rales, no crackles CVS: RRR, normal S1, S2, no murmurs Abdo: soft, no masses, no hepatosplenomegaly, BS+, no rebound tenderness Extremities: no edema, pulses 2+ MSK: Left knee, large effusion. No erythema, no warmth, no drainage or other skin changes. Regimen motion limited to approximately 25 degrees. peripheral pulses 2+ laterally, no bilateral lower extremity edema Neuro: no focal neuro deficits, moving all 4 extremities, CN2-12 intact. Strength 5/5 in all 4 extremities. No nystagmus. Psych: calm, cooperative, AAO x 3 LABORATORY DATA: See below. IMAGING: XR L knee 03/09/20 Large joint effusion. Three compartment osteoarthritis. Extensive chondrocalcinosis. Old posttraumatic or old erosive deformity flattening or depressing the medial tibial plateau unchanged from comparison studies. No acute fracture or subluxation MICROBIOLOGY: Please see below. ASSESSMENT: 74 yr old w a hx of Osteoporosis, HTN, Dyslipidemia, OA, GERD and chronic left tibial fx who presented w c/o worsening left knee pain and swelling, secondary to severe osteoarthritis. Cussed with Dr. Witt, orthopedic consult in place, plan for therapeutic left knee aspiration in the [facility]. . PLAN: #Acute on chronic L knee pain: likely 2/2 severe osteoarthritis[address] Has seen Dr. Witt in clinic. Requires eventual knee replacement. Reviewed recent CT scan, findings c/w severe OA. ESR wnl, CRP 1.0. Low suspicion for joint infection, given no fever, WBC, erythema or warmth of joint. Discussed with Dr. Witt, ortho consult placed. Plan for knee joint aspiration in am. Pain control with IV morphine prn and percocet scheduled. One dose toradol IV. #Elevated LA: possibly related to severe L knee inflammation. S/p 1L NS. Repeat pending. #Chronic HTN: c/w home lisinopril/HCTZ #Dyslipidemia: c/w atorvastatin #Osteoporosis: c/w Ca and Vit D. #GERD: ppi DVT ppx: SCDs, TEDs. Vital Signs Vital Signs Date Time Temp Pulse Resp B/P (MAP) Pulse Ox O2 Delivery O2 Flow Rate FiO2 03/09/20 16:25 16 03/09/20 16:11 97.0 111 160/85 (110) 100 Room Air Laboratory Data Labs 24H Laboratory Tests 2 03/09/20 15:37: Immature Granulocyte % (Auto) 0.8, Neutrophils (%) (Auto) 86.4H, Lymphocytes (%) (Auto) 6.3L, Monocytes (%) (Auto) 6.1H, Eosinophils (%) (Auto) 0.0, Basophils (%) (Auto) 0.4, Neutrophils # (Auto) 9.2H, Lymphocytes # (Auto) 0.7L, Monocytes # (Auto) 0.7, Eosinophils # (Auto) 0.0, Basophils # (Auto) 0.0, Nucleated Red Blood Cells % (auto) 0.0, Erythrocyte Sedimentation Rate 23, Lactic Acid Level 3.5*H, Total Bilirubin 0.6, Direct Bilirubin 0.2, Aspartate Amino Transf (AST/SGOT) 18, Alanine Aminotransferase (ALT/SGPT) 14, Alkaline Phosphatase 113, C-Reactive Protein, Quantitative 1.00H, Total Protein 7.3, Albumin 3.7, Albumin/Globulin Ratio 1.0L 03/09/20 15:42: POC Glucose (Misc Panel) 131H, POC Sodium (Misc Panel) 132L, POC Potassium (Misc Panel) 4.3, POC Chloride (Misc Panel) 96L, POC Total CO2 (Misc Panel) 23.0, POC Blood Urea Nitrogen (Misc Panel 17, POC Ionized Calcium (Misc Panel) 5.0, POC Creatinine (Misc Panel) 0.9, POC Hematocrit (Misc Panel) 42.0 CBC/BMP Laboratory Tests 03/09/20 15:37 Home Medications Scheduled Ascorbic Acid (Vitamin C) 500 Mg Tab, 500 MG PO DAILY Atorvastatin Calcium (Atorvastatin Calcium) 20 Mg Tab, 20 MG PO DAILY Calcium Carbonate/Vitamin D3 (Calcium 600-Vit D3 200 Tablet) 1 Tab Tab, 1 TAB PO DAILY Lisinopril/Hydrochlorothiazide (Lisinopril-Hctz 10-12.5 mg Tab) 1 Tab Tab, 1 TAB PO DAILY Magnesium Chloride (Mag64) 64 Mg Tabcr, 64 MG PO DAILY Naproxen (Naproxen) 500 Mg Tab, 500 MG PO DAILY Omeprazole (Omeprazole) 40 Mg Cap, 40 MG PO DAILY Scheduled PRN Acetaminophen (Tylenol Extra Strength) 500 Mg Tablet, 1,000 MG PO Q6H PRN for PAIN Oxycodone HCl/Acetaminophen (Oxycodone-Acetaminophen 5-325) 1 Each Tablet, 1 TAB PO Q6H PRN for MODERATE/SEVERE PAIN (PS 5-10) Allergies Coded Allergies: Penicillins (Verified Allergy, Intermediate, 02/12/20) amoxicillin (Verified Allergy, Intermediate, itching, 02/12/20) KAY HURLEY MD Mar 09, 2020 18:20
[2020-03-09] MEDS ORDERED: PERCOCET 5MG/325MG TAB PO PRN (18:30)
[2020-03-09] MEDS: hydroCHLOROthiazide 12.5 MG CAPSULE PO SCH (18:30)
[2020-03-09] MEDS ORDERED: KETOROLAC 30 MG/ML 1ML VIAL IV ONE (18:45)
[2020-03-09] MEDS ORDERED: MORPHINE 2 MG/ML 1ML VIAL (J2270) IV PRN (18:45)
[2020-03-09 21:00] VITALS: BP 140/72
[2020-03-09] MEDS: DOCUSATE SODIUM 100 MG CAP PO SCH (21:47)
[2020-03-10 05:51] LABS: BASO # 0.1 10^3/uL (0.0-0.2); BASO % 0.6 % (0.0-1.0); EOS # 0.3 10^3/uL (0.0-0.5); HEMATOCRIT 31.6 % (36.0-47.0); LYMPH # 1.7 10^3/uL (1.5-5.0); LYMPH % 17.5 % (24.0-44.0); MEAN CORPUSCULAR HGB CONC 32.9 g/dl (32.0-36.5); MEAN CORPUSCULAR VOLUME 91.1 fl (80.0-96.0); MONO # 1.1 10^3/uL (0.0-0.8); MONO % 11.6 % (0.0-5.0); NEUTROPHILS # 6.5 10^3/uL (1.5-8.5); NEUTROPHILS % 66.9 % (36.0-66.0); PLATELET COUNT, AUTOMATED 379 10^3/uL (150-450); RED BLOOD COUNT 3.47 10^6/uL (4.00-5.40); WHITE BLOOD COUNT 9.7 10^3/uL (4.0-10.0)
[2020-03-10 05:52] LABS: HEMOGLOBIN 10.4 g/dl (12.0-15.5)
[2020-03-10 06:00] VITALS: BP 133/59
[2020-03-10 06:13] LABS: ERYTHROCYTE SEDIMENTATION RATE 21 mm/hr (0-30)
[2020-03-10 06:17] LABS: ALBUMIN 2.9 GM/DL (3.2-5.2); ALT/SGPT 10 U/L (12-78); BILIRUBIN,TOTAL 0.4 MG/DL (0.2-1.0); BLOOD UREA NITROGEN 16 MG/DL (7-18); CALCIUM LEVEL 9.6 MG/DL (8.8-10.2); CARBON DIOXIDE LEVEL 28 MEQ/L (21-32); CHLORIDE LEVEL 103 MEQ/L (98-107); CREATININE FOR GFR 0.89 MG/DL (0.55-1.30); GLOMERULAR FILTRATION RATE > 60.0 (>39); GLUCOSE, FASTING 83 MG/DL (70-100); MAGNESIUM LEVEL 1.8 MG/DL (1.8-2.4); POTASSIUM SERUM 4.3 MEQ/L (3.5-5.1); SODIUM LEVEL 136 MEQ/L (136-145); TOTAL PROTEIN 5.9 GM/DL (6.4-8.2)
[2020-03-10] MEDS ORDERED: CALCIUM/VITAMIN D 500 MG TAB PO SCH (09:00)
[2020-03-10] MEDS ORDERED: lisinopriL 10 MG TAB PO SCH (09:00)
[2020-03-10] MEDS ORDERED: MAGNESIUM CHLORIDE 64 MG TABCR (SLO MAG) PO SCH (09:00)
[2020-03-10] MEDS ORDERED: ASCORBIC ACID 500 MG TAB PO SCH (09:00)
[2020-03-10] MEDS ORDERED: ATORVASTATIN 20 MG TAB PO SCH (09:00)
[2020-03-10] MEDS ORDERED: OMEPRAZOLE 20 MG CAP PO SCH (09:00)
[2020-03-10] MEDS: DOCUSATE SODIUM 100 MG CAP PO SCH (09:31)
[2020-03-10] MEDS: hydroCHLOROthiazide 12.5 MG CAPSULE PO SCH (09:31)
[2020-03-10 09:34] VITALS: BP 135/69
[2020-03-10 13:31] VITALS: BP 147/74
[2020-03-10] MEDS ORDERED: OXYC1TAB23 PO (13:42)
--- NOTE | 2020-03-10 16:33 | DS.PDOC ---
Discharge Summary General Date of Admission Mar 09, 2020 at 14:24 Date of Discharge Mar 10, 2020 at 15:00 Primary Care Physician: Rosario Burnham Attending Physician: LILLIE SOTO MD Discharge Summary PROCEDURES PERFORMED DURING STAY: None. ADMITTING DIAGNOSES: 1. Acute on chronic left knee pain 2. Hypertension 3. GERD 4. Chronic diastolic CHF 5. Mild pulmonary HTN 6. Osteoarthritis left knee. DISCHARGE DIAGNOSES: 1. Hypertension 2. GERD 3. Chronic diastolic CHF 4. Mild pulmonary HTN 5. Osteoarthritis of left knee. COMPLICATIONS/CHIEF COMPLAINT: Left Knee Pain, Effusion Of Knee Joint. HISTORY OF PRESENT ILLNESS: 74 yo F with a hx of severe osteoarthritis of L knee, GERD, chronic HTN, chronic diastolic CHF, presented to ED with severe L knee pain and swelling. She has been seen in orthopedics clinic and was advised she needed a L knee arthroplasty. She was admitted to [facility] on 02/27 for same issues and was assessed by orthopedic service. CT scan showed severe collapse of medial plateau with advanced arthritis. Recommendation was made for outaptient knee replacement. Pateint states that her pain has become intolerable and she required crutches at home to ambulate. She denies fevers, chills, but endorses severe ROM limitation due to pain, and inability to bear weight. HOSPITAL COURSE: Patient was admitted to the hospital, she had stable vitals, WBC 10.6, platelets 469, CRP 1, ESR 23, lactic acid 3.5. She was given a liter of fluid in the ER. Dr. Witt ortho was consulted and after admission, patient was seen by Dr. Witt and as she was scheduled to see Dr. Ha on 03/12/2020 for knee replacement in the near future he did not want to stick in needle for drainage/aspiration, as it leads to infections. Pain was controlled with IV morphine when necessary and Percocet scheduled. One dose of tramadol IV. DISCHARGE MEDICATIONS: Please see below. ALLERGIES: Please see below. PHYSICAL EXAMINATION ON DISCHARGE: VITAL SIGNS: Please see below. General: Patient is awake, alert, oriented times three, sitting in bed , no colin arent distress. Eyes: Conjunctiva clear, pupils equal round and reactive to light and accommodation. Cardiovascular: S1, S2, normal rhythm, no murmur, rub, or gallop. Respiratory: Chest is clear to auscultation bilaterally. No rhonchi, wheezes or rubs. Abdomen: Soft, bowel sounds positive, no bruits. No tenderness on palpation. Liver edge, spleen, kidney not felt, no masses. Extremities: Left knee, large effusion. No erythema, no warmth, no drainage or other skin changes. Reduced range of motion reduced and left knee. No clubbing or cyanosis. No edema. Central nervous system (TRAVELIFT OPERATOR): Awake, alert and fully oriented. LABORATORY DATA: Please see below. IMAGING: X-ray left knee: 03/09/2020, reported as large joint effusion. 3 compartment osteoarthritis. Extensive chondrocalcinosis. Old posttraumatic or old erosive deformity flattening/ depressing the medial tibial plateau unchanged from comparison studies. No acute fracture or subluxation. PROGNOSIS: Good ACTIVITY: As tolerated. DIET: Diabetic diet DISCHARGE PLAN: Discharge home with follow-up with Dr. Ha on 03/13/2020 DISPOSITION: 01 Home, Self-Care. DISCHARGE INSTRUCTIONS: 1. Follow-up with a PCP and one week. ITEMS TO FOLLOWUP ON ON OUTPATIENT: 1. Follow with Dr. Ha, she has an appointment already on 03/13/2020. DISCHARGE CONDITION: Stable. TIME SPENT ON DISCHARGE: Greater than 30 minutes. Vital Signs/I&Os Vital Signs Date Time Temp Pulse Resp B/P (MAP) Pulse Ox O2 Delivery O2 Flow Rate FiO2 03/10/20 15:01 16 03/10/20 14:28 94 Room Air 03/10/20 13:31 98.5 120 147/74 (98) I&O- Last 24 Hours up to 6 AM 03/10/20 06:00 Intake Total 1210 ml Output Total 250 ml Balance 960 ml Laboratory Data Labs 24H Laboratory Tests 2 03/09/20 18:52: Lactic Acid Level 1.3 03/10/20 05:28: Lactic Acid Level 0.8, Immature Granulocyte % (Auto) 0.4, Neutrophils (%) (Auto) 66.9H, Lymphocytes (%) (Auto) 17.5L, Monocytes (%) (Auto) 11.6H, Eosinophils (%) (Auto) 3.0, Basophils (%) (Auto) 0.6, Neutrophils # (Auto) 6.5, Lymphocytes # (Auto) 1.7, Monocytes # (Auto) 1.1H, Eosinophils # (Auto) 0.3, Basophils # (Auto) 0.1, Nucleated Red Blood Cells % (auto) 0.0, Erythrocyte Sedimentation Rate 21, Anion Gap 5L, Glomerular Filtration Rate > 60.0, Calcium Level 9.6, Magnesium Level 1.8, Total Bilirubin 0.4, Aspartate Amino Transf (AST/SGOT) 16, Alanine Aminotransferase (ALT/SGPT) 10L, Alkaline Phosphatase 92, C-Reactive Protein, Quantitative 0.90H, Total Protein 5.9L, Albumin 2.9#L, Albumin/Globulin Ratio 1.0L CBC/BMP Laboratory Tests 03/10/20 05:28 Discharge Medications Scheduled Ascorbic Acid (Vitamin C) 500 Mg Tab, 500 MG PO DAILY, (Reported) Atorvastatin Calcium (Atorvastatin Calcium) 20 Mg Tab, 20 MG PO DAILY, (Reported) Calcium Carbonate/Vitamin D3 (Calcium 600-Vit D3 200 Tablet) 1 Tab Tab, 1 TAB PO DAILY, (Reported) Lisinopril/Hydrochlorothiazide (Lisinopril-Hctz 10-12.5 mg Tab) 1 Tab Tab, 1 TAB PO DAILY, (Reported) Magnesium Chloride (Mag64) 64 Mg Tabcr, 64 MG PO DAILY, (Reported) Omeprazole (Omeprazole) 40 Mg Cap, 40 MG PO DAILY, (Reported) Scheduled PRN Acetaminophen (Tylenol Extra Strength) 500 Mg Tablet, 1,000 MG PO Q6H PRN for PAIN, (Reported) Oxycodone HCl/Acetaminophen (Oxycodone-Acetaminophen 5-325) 1 Each Tablet, 1 TAB PO Q6-8HP PRN for pain Allergies Coded Allergies: Penicillins (Verified Allergy, Intermediate, 02/12/20) amoxicillin (Verified Allergy, Intermediate, itching, 02/12/20) GME ATTESTATION GME ATTESTATION My faculty preceptor for this patient encounter was physically present during the encounter and was fully available. All aspects of the patient interview, examination, medical decision making process, and medical care plan development were reviewed and approved by the faculty preceptor. The faculty preceptor is aware and concurs with the plan as stated in the body of this note and will attest to such by his/her cosignature. ATTENDING NOTE Patient was seen and examined by me personally with the residents/ students. I agree with the above assessment and plan Tobi Darling MD Mar 10, 2020 16:33 LILLIE SOTO MD Mar 11, 2020 12:47
--- NOTE | 2020-03-12 07:13 | CR ---
DATE OF CONSULTATION: 03/10/2020 CHIEF COMPLAINT: Left knee pain and osteoarthritis HISTORY OF PRESENT ILLNESS: 74-year-old female has is familiar to me through the emergency department (ED) also through the clinic. She is pending referral to Dr. Ha. Apparently, she has an appointment to see him later in this week. She presented to the emergency department [facility] with worsening again of her pain in left knee. No other symptoms. No fevers, chills, but other symptoms. For past medical history, medications, surgical history and social history, see the hospitalists note. PHYSICAL EXAMINATION: This is a well-appearing 74-year-old female. She is afebrile. Vital signs are stable. She appears well. I saw her [facility]. She appears comfortable. There is a moderate sized knee effusion, no redness or warmth. There is varus alignment. Normal sensation of foot. Foot is warm and well perfuse. She is able to wiggle her toes. Dorsiflex and plantar flex foot. Laboratory examination reveals white blood cell count at 10.6 trending down to 9.7. ESR 23 to 21 and CRP is 1 trending down to 0.9. Imaging studies demonstrate large joint effusion, excessive chondrocalcinosis, post traumatic or erosive deformity, flatting or depressing the medial tibial plateau, unchanged from the previous studies. ASSESSMENT AND PLAN: This 74-year-old female has severe medial compartment osteoarthritis to the left knee with plateau. Her pain seems to be well controlled at this point. She can be mobilized, weightbearing as tolerated and follow up with Dr. Pyle for consideration as an outpatient for total knee arthroplasty. I would not recommend doing aspiration at this point as this would likely delay her ability to have surgery due to increase infection risks surrounding perioperative aspiration and injections. I will follow the patient along. SUE
== END 2020-03-10 15:30 | disposition home or self-care (01) ==
LOC: EDBD 14:23 → M ED 14:23 → M ED INP 14:24 → ENRESERV 18:25 → M MSPAV 21:02
PROVIDERS: ADMIT Family Medicine; ATTEND Internal Medicine
DX: I10 Essential (primary) hypertension (principal); K21.9 Gastro-esophageal reflux disease without esophagitis; I50.32 Chronic diastolic (congestive) heart failure; I27.20 Pulmonary hypertension, unspecified; M17.12 Unilateral primary osteoarthritis, left knee; Z79.899 Other long term (current) drug therapy; Z88.0 Allergy status to penicillin
CPT/HCPCS: 36415; 73560; 80047; 80053; 80076; 83605; 83735; 85025; 85652; 86140; 96361; 96374; 96375; 96376; 97161; 97530; 99284; G0378; J1885; J2270

== ENCOUNTER → 2020-04-25 | Outpatient (REF) | payer MEDICARE ==
[~2020-04-25] MED LIST changes: +OXYC1TAB23 PO
[2020-04-25 16:23] LABS: HEMATOCRIT 41.2 % (36.0-47.0); HEMOGLOBIN 13.5 g/dl (12.0-15.5); MEAN CORPUSCULAR HEMOGLOBIN 30.4 pg (27.0-33.0); MEAN CORPUSCULAR HGB CONC 32.8 g/dl (32.0-36.5); MEAN CORPUSCULAR VOLUME 92.8 fl (80.0-96.0); PLATELET COUNT, AUTOMATED 435 10^3/uL (150-450); RED BLOOD COUNT 4.44 10^6/uL (4.00-5.40); WHITE BLOOD COUNT 11.9 10^3/uL (4.0-10.0)
[2020-04-25 16:29] LABS: ALBUMIN 3.9 GM/DL (3.2-5.2); ALT/SGPT 19 U/L (12-78); BILIRUBIN,TOTAL 0.5 MG/DL (0.2-1.0); BLOOD UREA NITROGEN 12 MG/DL (7-18); CALCIUM LEVEL 10.2 MG/DL (8.8-10.2); CARBON DIOXIDE LEVEL 33 MEQ/L (21-32); CHLORIDE LEVEL 98 MEQ/L (98-107); CHOLESTEROL LEVEL 149 MG/DL (<200); CREATININE FOR GFR 0.88 MG/DL (0.55-1.30); GLOMERULAR FILTRATION RATE > 60.0 (>39); GLUCOSE, FASTING 89 MG/DL (70-100); HDL CHOLESTEROL 76 MG/DL (>40); LDL CHOLESTEROL 58 MG/DL (<100); NON-HDL-C 73 MG/DL; POTASSIUM SERUM 4.2 MEQ/L (3.5-5.1); SODIUM LEVEL 137 MEQ/L (136-145); TOTAL PROTEIN 7.4 GM/DL (6.4-8.2); TRIGLYCERIDES LEVEL 74 MG/DL (<150)
[2020-04-25 16:37] LABS: TOTAL 25(OH) VITAMIN D 51.1 NG/ML (30.0-100.0)
== END ==
LOC: M SFHCCLAY 13:01
PROVIDERS: ATTEND Nurse Practitioner Family
DX: K21.9 Gastro-esophageal reflux disease without esophagitis (principal); I10 Essential (primary) hypertension; E78.5 Hyperlipidemia, unspecified; M15.0 Primary generalized (osteo)arthritis; Z79.899 Other long term (current) drug therapy

== ENCOUNTER 2020-05-09 05:50 | Observation (INO) | payer MEDICARE ==
[~2020-05-09] VITALS: Ht 149.9 cm; Wt 48.7 kg
[2020-05-09] MEDS ORDERED: PERCOCET 5MG/325MG TAB PO ONE (06:30)
[2020-05-09 07:35] LABS: BASO # 0.1 10^3/uL (0.0-0.2); BASO % 0.5 % (0.0-1.0); EOS % 0.1 % (0.0-3.0); HEMATOCRIT 37.6 % (36.0-47.0); HEMOGLOBIN 12.2 g/dl (12.0-15.5); LYMPH # 0.8 10^3/uL (1.5-5.0); LYMPH % 5.1 % (24.0-44.0); MEAN CORPUSCULAR HEMOGLOBIN 29.3 pg (27.0-33.0); MEAN CORPUSCULAR HGB CONC 32.4 g/dl (32.0-36.5); MEAN CORPUSCULAR VOLUME 90.2 fl (80.0-96.0); MONO # 0.8 10^3/uL (0.0-0.8); MONO % 5.3 % (0.0-5.0); NEUTROPHILS # 13.4 10^3/uL (1.5-8.5); NEUTROPHILS % 88.3 % (36.0-66.0); PLATELET COUNT, AUTOMATED 373 10^3/uL (150-450); RED BLOOD COUNT 4.17 10^6/uL (4.00-5.40); WHITE BLOOD COUNT 15.2 10^3/uL (4.0-10.0)
[2020-05-09 07:54] LABS: BLOOD UREA NITROGEN 17 MG/DL (7-18); C REACTIVE PROTEIN QUANTITATIV 0.49 MG/DL (0.00-0.30); CALCIUM LEVEL 9.7 MG/DL (8.8-10.2); CARBON DIOXIDE LEVEL 27 MEQ/L (21-32); CHLORIDE LEVEL 101 MEQ/L (98-107); CREATININE FOR GFR 0.91 MG/DL (0.55-1.30); GLOMERULAR FILTRATION RATE > 60.0 (>39); GLUCOSE, FASTING 102 MG/DL (70-100); POTASSIUM SERUM 3.8 MEQ/L (3.5-5.1); SODIUM LEVEL 136 MEQ/L (136-145)
[2020-05-09 08:16] LABS: ERYTHROCYTE SEDIMENTATION RATE 15 mm/hr (0-30)
--- NOTE | 2020-05-09 08:21 | REPVR ---
PROCEDURE INFORMATION: Exam: CT Left Lower Extremity Without Contrast, Knee Exam date and time: 05/09/2020 6:26 AM Age: 74 years old Clinical indication: Pain; Knee; Left; Additional info: Increased swelling/pain TECHNIQUE: Imaging protocol: CT of the Left lower extremity without contrast was performed. Exam focused on the knee. Radiation optimization: All CT scans at this facility use at least one of these dose optimization techniques: automated exposure control; mA and/or kV adjustment per patient size (includes targeted exams where dose is matched to clinical indication); or iterative reconstruction. COMPARISON: CT-Knee WITHOUT CONTRAST LEFT 02/28/2020 6:15 AM FINDINGS: Limitations: Motion artifact does moderately limit the sensitivity of this examination. Bones/joints: There is a continuing large joint effusion with anterior bulging of the quadriceps mechanism but no definite disruption. There is a continuing valgus deformity of the knee with narrowing of the lateral joint space associated with calcification of the meniscus. A 2 cm cluster of calcific debris is again a a a seen in the posterior joint space laterally on sagittal image 38 and in the anterior joint space on image 30 and in the intercondylar notch anteriorly on sagittal image 38. 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 There is some juxta articular erosion of the lateral surface of the tibial epiphysis on centered on coronal image 27 which raises possibility of underlying gout. Downsloping medial tibial plateau is again seen which may reflect remote plateau fracture. Soft tissues: Normal. IMPRESSION: 1. There is a continuing large joint effusion with anterior bulging of the quadriceps mechanism but no definite disruption. 2. There is a continuing valgus deformity of the knee with narrowing of the lateral joint space associated with calcification of the meniscus. A 2 cm cluster of calcific debris is again a a a seen in the posterior joint space laterally on sagittal image 38 and in the anterior joint space on image 30 and in the intercondylar notch anteriorly on sagittal image 38. 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 3. There is some juxta articular erosion of the lateral surface of the tibial epiphysis on centered on coronal image 27 which raises possibility of underlying gout. 4. Downsloping medial tibial plateau is again seen which may reflect remote plateau fracture. Electronically signed by: Biju Davila On 05/09/2020 08:21:36 AM
[2020-05-09] MEDS ORDERED: LIDOCAINE 2% W/EPINEPHRINE 20ML VIAL **PRES FREE INJ ONE (08:30)
[2020-05-09] MEDS ORDERED: CALCIUM/VITAMIN D 500 MG TAB PO SCH (09:00)
[2020-05-09 09:46] LABS: SOURCE, BODY FLUID RT KNEE; SYNOVIAL FLUID COLOR RED (YELLOW)
[2020-05-09 10:07] LABS: CRYSTALS, BODY FLUID NONE SEEN (NONE SEEN); SOURCE, BODY FLUID CRYSTALS RT KNEE
[2020-05-09 11:16] LABS: SOURCE, BODY FLUID GLUCOSE RT KNEE; SOURCE, BODY FLUID URIC ACID RT KNEE; URIC ACID, BODY FLUID 4.2 MG/DL (NOT ESTABLISHED)
[2020-05-09] MEDS ORDERED: MOM 30ML SUSPENSION UDC PO PRN (13:00)
[2020-05-09] MEDS ORDERED: ACETAMINOPHEN 500 MG TAB PO ONE (13:15)
[2020-05-09] MEDS ORDERED: KETOROLAC 30 MG/ML 1ML VIAL IV ONE (13:15)
[2020-05-09] MEDS ORDERED: predniSONE 20 MG TAB PO ONE (13:15)
[2020-05-09 13:25] LABS: BODY FLUID RHEUMATOID SCREEN NEGATIVE (NEGATIVE)
[2020-05-09 15:20] VITALS: BP 139/76
--- NOTE | 2020-05-09 15:27 | HPEPDOC ---
General Date of Admission 05/09/20 Date of Service: May 09, 2020 Chief Complaint The patient is a 74-year-old female admitted with a reason for visit of Leg Pain. Source: Patient, RN/MD History of Present Illness 74 year old female with PMH of Left Knee OA, hypertension, GERD, HLD presented to the ED with increased pain and swelling of the left knee that suddenly woke her up from sleep at around 2 am. Since then she has been unable to bear weight on it and having difficulty in ambulation with her crutches. She has been having ongoing problem with her left knee 3 months and she has been using crutches to ambulate. Now worse over the past 1 month. SHe was supposed to see ortho at [place] for left knee replacement but has not been able to see them due to the COVID. She describes the pain as constant and non-stop, sharp, with associated swelling. A pillow underneath her left knee relieves the pain. She states that the pain is a 7/10 in intensity. Patient had a knee tap done in the ED which was mostly blood. Did not suggest any infection. It did not show any crystals also. CT of the Extremity shows there is a continuing large joint effusion with anterior bulging of the quadriceps mechanism but no definite disruption. There is a continuing valgus deformity of the knee with narrowing of the lateral joint space associated with calcification of the meniscus. A 2 cm cluster of calcific debris is again a a a seen in the posterior joint space laterally on sagittal image 38 and in the anterior joint space on image 30 and in the intercondylar notch anteriorly on sagittal image 38. 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 There is some juxta articular erosion of the lateral surface of the tibial epiphysis on centered on coronal image 27 which raises possibility of underlying gout. Downsloping medial tibial plateau is again seen which may reflect remote plateau fracture. Patient is admitted for Left knee pain and effusion with difficulty in ambulation with possibility of acute gout vs pseudo gout vs trauma. Home Medications Scheduled Ascorbic Acid (Vitamin C) 500 Mg Tab, 500 MG PO BID, (Reported) Atorvastatin Calcium (Atorvastatin Calcium) 20 Mg Tab, 20 MG PO DAILY, (Reported) Calcium Carbonate/Vitamin D3 (Calcium 600-Vit D3 200 Tablet) 1 Tab Tab, 1 TAB PO DAILY, (Reported) Lisinopril/Hydrochlorothiazide (Lisinopril-Hctz 10-12.5 mg Tab) 1 Tab Tab, 1 TAB PO DAILY, (Reported) Magnesium Chloride (Mag64) 64 Mg Tabcr, 64 MG PO DAILY, (Reported) Omeprazole (Omeprazole) 40 Mg Cap, 40 MG PO DAILY, (Reported) Scheduled PRN Acetaminophen (Tylenol Extra Strength) 500 Mg Tablet, 1,000 MG PO Q6H PRN for PAIN, (Reported) Oxycodone HCl/Acetaminophen (Oxycodone-Acetaminophen 5-325) 1 Each Tablet, 1 TAB PO Q6-8HP PRN for pain Allergies Coded Allergies: Penicillins (Verified Allergy, Intermediate, RASH, 05/09/20) amoxicillin (Verified Allergy, Intermediate, RASH, 05/09/20) Past Medical History Medical History Hypertension Dyslipidemia GERD Chronic diastolic CHF Mitral regurgitation Mild Pulm HTN OA of Left Knee Osteoporosis Surgical History L hip surgery L knee arthroscopy for torn meniscus Family History Significant Family History: Diabetes, Heart disease Social History * Smoker: non-smoker Alcohol: Denies Drugs: denies A-FIB/CHADSVASC A-FIB History Current/History of A-Fib/PAF?: No Review of Systems Constitutional: Denies: Chills, Fever, Night Sweats Eyes: Denies: Pain, Vision change ENT: Denies: Head Aches, Ear Pain, Dysphagia Skin: Denies: Rash, Lesions, Breakdown Pulmonary: Denies: Dyspnea, Cough Cardiovascular: Denies: Chest Pain, Palpitations, Orthopnea, Paroxysmal Noc. Dyspnea, Lt Headedness Gastrointestinal: Denies: Nausea, Vomiting, Abdominal Pain, Diarrhea Genitourinary: Denies: Dysuria, Frequency, Incontinence, Retention Musculoskeletal: Reports: Joint Pain (left knee pain and swelling) Physical Examination General Exam: Positive: Alert, Cooperative, No Acute Distress Eye Exam: Positive: PERRLA, Conjunctiva & lids normal, EOMI; Negative: Sclera icteric Neck Exam: Positive: Supple; Negative: JVD, thyromegaly Chest Exam: Positive: Clear to auscultation, Normal air movement Heart Exam: Positive: Rate Normal, Regular Rhythm, Normal S1, Normal S2; Negative: Murmurs, Rubs Abdomen Exam: Positive: Normal bowel sounds, Soft; Negative: Tenderness, Hepatospenomegaly Extremity Exam: Positive: Tenderness, Swelling, Other ( Left knee effusion w/ pain to palpitation, no erythema present) Skin Exam: Positive: Nl turgor and temperature; Negative: Breakdown, Lesion Neuro Exam: Positive: Normal Speech, Cranial Nerves 3-12 NL, Reflexes 2+ Vital Signs Vital Signs Date Time Temp Pulse Resp B/P (MAP) Pulse Ox O2 Delivery O2 Flow Rate FiO2 05/09/20 10:57 99 18 153/77 (102) 100 Room Air 05/09/20 06:02 98.0 Laboratory Data Labs 24H Laboratory Tests 2 05/09/20 07:25: Immature Granulocyte % (Auto) 0.7, Neutrophils (%) (Auto) 88.3H, Lymphocytes (%) (Auto) 5.1L, Monocytes (%) (Auto) 5.3H, Eosinophils (%) (Auto) 0.1, Basophils (%) (Auto) 0.5, Neutrophils # (Auto) 13.4H, Lymphocytes # (Auto) 0.8L, Monocytes # (Auto) 0.8, Eosinophils # (Auto) 0.0, Basophils # (Auto) 0.1, Nucleated Red Blood Cells % (auto) 0.0, Erythrocyte Sedimentation Rate 15, Anion Gap 8, Glomerular Filtration Rate > 60.0, Calcium Level 9.7, C-Reactive Protein, Quantitative 0.49H 05/09/20 08:54: Body Fluid WBC (Auto) 3494H, Body Fluid RBC (Auto) 1852, Body Fluid Mononuclear Cells % Auto 35.8H, Fluid Polymorphonuclear Cell % Auto 64.2H, Body Fluid Crystals NONE SEEN, Body Fluid Crystal Source RT KNEE, Body Fluid Glucose Source RT KNEE, Body Fluid Glucose 28, Body Fluid Uric Acid 4.2, Body Fluid Uric Acid Source RT KNEE, Synovial Fluid Source RT KNEE, Synovial Fluid Color RED, Synovial Fluid Appearance CLOUDY CBC/BMP Laboratory Tests 05/09/20 07:25 Microbiology Microbiology 05/09/20 Gram Stain - Final, Resulted 05/09/20 Body Fluid Culture, Resulted Pending Assessment/Plan 74 year old female with PMH of Left Knee OA, hypertension, GERD, HLD presented to the ED with increased pain and swelling of the left knee that suddenly woke her up from sleep at around 2 am. Since then she has been unable to bear weight on it and having difficulty in ambulation with her crutches. She has been having ongoing problem with her left knee 3 months and she has been using crutches to ambulate. Now worse over the past 1 month. SHe was supposed to see ortho at [place] for left knee replacement but has not been able to see them due to the COVID. Knee tap done in the ED which was mostly blood. Did not suggest any infection. It did not show any crystals also. Left knee pain and swelling. Gout vs Pseudogout with OA CT of knee shows synovial osteochondromatosis and some juxta articular erosion of the lateral surface of the tibial epiphysis which raises possibility of underlying gout. Dr Witt from Ortho was contacted by ED provider and he advised pain control and follow up with Ortho as outpatient. will give toradol and tylenol and prednisone for pain control. Hypertension continue lisinopril and HCTZ Dyslipidemia atorvastatin Osteoporosis calcium w/ vitamin D Plan / VTE VTE Prophylaxis Ordered?: Yes PARTH LOYOLA MD May 09, 2020 13:35
[2020-05-09] MEDS: MAGNESIUM OXIDE 400 MG TAB (MAG-OX) PO SCH (15:43)
[2020-05-09] MEDS: hydroCHLOROthiazide 12.5 MG CAPSULE PO SCH (15:44)
[2020-05-09] MEDS: OMEPRAZOLE 20 MG CAP PO SCH (15:48)
[2020-05-09] MEDS: lisinopriL 10 MG TAB PO SCH (15:48)
[2020-05-09] MEDS: ATORVASTATIN 20 MG TAB PO SCH (15:48)
[2020-05-09] MEDS: CALCIUM/VITAMIN D 500 MG TAB PO SCH (16:37)
[2020-05-09 20:00] VITALS: BP 103/69
[2020-05-09] MEDS: DOCUSATE SODIUM 100MG CAPSULE PO SCH (20:10)
[2020-05-09] MEDS: ASCORBIC ACID 500 MG TAB PO SCH (20:10)
[2020-05-09] MEDS: ACETAMINOPHEN 500 MG TAB PO SCH (20:11)
[2020-05-09] MEDS: KETOROLAC 30 MG/ML 1ML VIAL IV SCH (20:11)
[2020-05-10] MEDS: KETOROLAC 30 MG/ML 1ML VIAL IV SCH ×2 (02:04→09:16)
[2020-05-10 06:28] VITALS: BP 121/83
[2020-05-10] MEDS ORDERED: predniSONE 20 MG TAB PO SCH (09:00)
[2020-05-10] MEDS: OMEPRAZOLE 20 MG CAP PO SCH (09:14)
[2020-05-10] MEDS: ASCORBIC ACID 500 MG TAB PO SCH (09:15)
[2020-05-10] MEDS: ATORVASTATIN 20 MG TAB PO SCH (09:15)
[2020-05-10] MEDS: DOCUSATE SODIUM 100MG CAPSULE PO SCH (09:15)
[2020-05-10] MEDS: CALCIUM/VITAMIN D 500 MG TAB PO SCH (09:15)
[2020-05-10] MEDS: MAGNESIUM OXIDE 400 MG TAB (MAG-OX) PO SCH (09:15)
[2020-05-10] MEDS: ACETAMINOPHEN 500 MG TAB PO SCH (09:15)
[2020-05-10 09:18] VITALS: BP 136/82
[2020-05-10] MEDS: lisinopriL 10 MG TAB PO SCH (09:18)
[2020-05-10] MEDS: hydroCHLOROthiazide 12.5 MG CAPSULE PO SCH (09:19)
[2020-05-10] MEDS ORDERED: NAPR-837 PO (10:11)
[2020-05-10] MEDS ORDERED: PRED20TA PO (10:11)
[2020-05-10] MEDS ORDERED: ACET-897 PO (10:11)
--- NOTE | 2020-05-10 10:36 | DS.PDOC ---
Discharge Summary General Date of Admission May 09, 2020 at 05:51 Date of Discharge 05/10/20 Discharge Summary PROCEDURES PERFORMED DURING STAY: Knee tap DISCHARGE DIAGNOSES: Left Knee osteoarthritis Left knee possible gout or pseudogout. Hypertension Dyslipidemia Osteoporosis COMPLICATIONS/CHIEF COMPLAINT: Left Knee Pain Unable To Ambulate. HOSPITAL COURSE: 74 year old female with PMH of Left Knee OA, hypertension, GERD, HLD presented to the ED with increased pain and swelling of the left knee that suddenly woke her up from sleep at around 2 am. Since then she has been unable to bear weight on it and having difficulty in ambulation with her crutches. She has been having ongoing problem with her left knee 3 months and she has been using crutches to ambulate. Now worse over the past 1 month. She was supposed to see ortho at [place] for left knee replacement but has not been able to see them due to the COVID. Knee tap done in the ED which was mostly blood. Did not suggest any infection. It did not show any crystals also. Left knee pain and swelling. Gout vs Pseudogout with OA CT of knee shows synovial osteochondromatosis and some juxta articular erosion of the lateral surface of the tibial epiphysis which raises possibility of underlying gout. Dr Witt from Ortho was contacted by ED provider and he advised pain control and follow up with Ortho as outpatient. tylenol, naproxen and prednisone for pain control. Hypertension continue lisinopril and HCTZ Dyslipidemia atorvastatin Osteoporosis calcium w/ vitamin D DISCHARGE MEDICATIONS: Please see below. ALLERGIES: Please see below. PHYSICAL EXAMINATION ON DISCHARGE: VITAL SIGNS: Please see below. General Exam: Positive: Alert, Cooperative, No Acute Distress Eye Exam: Positive: PERRLA, Conjunctiva & lids normal, EOMI; Negative: Sclera icteric Neck Exam: Positive: Supple; Negative: JVD, thyromegaly Chest Exam: Positive: Clear to auscultation, Normal air movement Heart Exam: Positive: Rate Normal, Regular Rhythm, Normal S1, Normal S2; Negative: Murmurs, Rubs Abdomen Exam: Positive: Normal bowel sounds, Soft; Negative: Tenderness, Hepatospenomegaly Extremity Exam: Positive: Tenderness, Swelling, Other ( Left knee effusion w/ pain to palpitation, no erythema present) Skin Exam: Positive: Nl turgor and temperature; Negative: Breakdown, Lesion Neuro Exam: Positive: Normal Speech, Cranial Nerves 3-12 NL, Reflexes 2+ LABORATORY DATA: Please see below. IMAGING: Extremity CT. 1. There is a continuing large joint effusion with anterior bulging of the quadriceps mechanism but no definite disruption. 2. There is a continuing valgus deformity of the knee with narrowing of the lateral joint space associated with calcification of the meniscus. A 2 cm cluster of calcific debris is again a a a seen in the posterior joint space laterally on sagittal image 38 and in the anterior joint space on image 30 and in the intercondylar notch anteriorly on sagittal image 38. 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 3. There is some juxta articular erosion of the lateral surface of the tibial epiphysis on centered on coronal image 27 which raises possibility of underlying gout. 4. Downsloping medial tibial plateau is again seen which may reflect remote plateau fracture. ACTIVITY: [As tolerated]. DIET: Regular DISCHARGE PLAN: Home DISCHARGE INSTRUCTIONS: Follow up with PMD in 1 week Follow up with Ortho in 2 weeks DISCHARGE CONDITION: [Stable]. TIME SPENT ON DISCHARGE: 35 minutes. Vital Signs/I&Os Vital Signs Date Time Temp Pulse Resp B/P (MAP) Pulse Ox O2 Delivery O2 Flow Rate FiO2 05/10/20 09:18 136/82 05/10/20 06:28 99.0 88 20 97 Room Air I&O- Last 24 Hours up to 6 AM 05/10/20 06:00 Intake Total 360 ml Output Total 0 ml Balance 360 ml Laboratory Data Labs 24H Laboratory Tests 2 05/09/20 13:11: Coronavirus (COVID-19)(PCR) NEGATIVE Microbiology Microbiology 05/09/20 Gram Stain - Final, Resulted 05/09/20 Body Fluid Culture, Resulted Pending Discharge Medications Scheduled Ascorbic Acid (Vitamin C) 500 Mg Tab, 500 MG PO BID, (Reported) Atorvastatin Calcium (Atorvastatin Calcium) 20 Mg Tab, 20 MG PO DAILY, (Reported) Calcium Carbonate/Vitamin D3 (Calcium 600-Vit D3 200 Tablet) 1 Tab Tab, 1 TAB PO DAILY, (Reported) Lisinopril/Hydrochlorothiazide (Lisinopril-Hctz 10-12.5 mg Tab) 1 Tab Tab, 1 TAB PO DAILY, (Reported) Magnesium Chloride (Mag64) 64 Mg Tabcr, 64 MG PO DAILY, (Reported) Naproxen (Naprosyn) 500 Mg Tablet, 1 TAB PO BID for pain Omeprazole (Omeprazole) 40 Mg Cap, 40 MG PO DAILY, (Reported) Prednisone (Prednisone) 20 Mg Tablet, 40 MG PO DAILY 2 tbs daily Scheduled PRN Acetaminophen (Tylenol Extra Strength) 500 Mg Tablet, 1,000 MG PO BID PRN for PAIN Oxycodone HCl/Acetaminophen (Oxycodone-Acetaminophen 5-325) 1 Each Tablet, 1 TAB PO Q6-8HP PRN for pain Allergies Coded Allergies: Penicillins (Verified Allergy, Intermediate, RASH, 05/09/20) amoxicillin (Verified Allergy, Intermediate, RASH, 05/09/20) PARTH LOYOLA MD May 10, 2020 10:36
[2020-05-10 11:24] LABS: INFLUENZA A AMPLIFICATION NEGATIVE (NEGATIVE); INFLUENZA B AMPLIFICATION NEGATIVE (NEGATIVE)
== END 2020-05-10 13:15 | disposition home or self-care (01) ==
LOC: M ED 05:50 → M ED INP 05:51 → ENRESERV 13:10 → M MS5PR 15:15
PROVIDERS: ADMIT Internal Medicine Nephrology; ATTEND Internal Medicine Nephrology
DX: M17.12 Unilateral primary osteoarthritis, left knee (principal); M10.9 Gout, unspecified; I10 Essential (primary) hypertension; E78.5 Hyperlipidemia, unspecified; M81.0 Age-related osteoporosis without current pathological fracture; Z79.52 Long term (current) use of systemic steroids; Z79.899 Other long term (current) drug therapy; Z88.0 Allergy status to penicillin
CPT/HCPCS: 73700; 80048; 82945; 84560; 85025; 85652; 86140; 86430; 87070; 87205; 87631; 89051; 89060; 96372; 96374; 96376; 97161; 97164; 99285; G0378; J1885; U0002

== ENCOUNTER → 2021-10-14 | Outpatient (REF) | payer MEDICARE ==
[~2021-10-14] MED LIST changes: -LISI10TA15 PO; +LISI10TA24 PO; +NAPR-837 PO; +OMEP40CA4 PO; -OMEP40CA97 PO; +PRED20TA PO
[2021-10-14 16:34] LABS: CALCIUM LEVEL 9.7 MG/DL (8.8-10.2); CHOLESTEROL RISK RATIO 1.75 (<5); CREATININE FOR GFR 1.1 MG/DL (0.55-1.30); GLOMERULAR FILTRATION RATE 51.4 (>39); MAGNESIUM LEVEL 2.1 MG/DL (1.8-2.4); POTASSIUM SERUM 4.4 MEQ/L (3.5-5.1)
[2021-10-14 16:38] LABS: TOTAL 25(OH) VITAMIN D 46.9 NG/ML (30.0-100.0)
== END ==
LOC: M SFHCCLAY 09:48
PROVIDERS: ATTEND Family Medicine
DX: I11.9 Hypertensive heart disease without heart failure (principal); M81.0 Age-related osteoporosis without current pathological fracture; E78.5 Hyperlipidemia, unspecified; Z79.899 Other long term (current) drug therapy

== ENCOUNTER → 2022-06-02 | Outpatient (REF) | payer MEDICARE ==
[2022-06-02 17:32] LABS: BLOOD UREA NITROGEN 16 MG/DL (9-23); CALCIUM LEVEL 9.9 MG/DL (8.3-10.6); CARBON DIOXIDE LEVEL 29 MMOL/L (20-31); CHLORIDE LEVEL 99 MMOL/L (98-107); CREATININE FOR GFR 0.89 MG/DL (0.55-1.30); GLOMERULAR FILTRATION RATE > 60.0 (>39); GLUCOSE, FASTING 84 MG/DL (74-106); POTASSIUM SERUM 4.2 MMOL/L (3.5-5.1); SODIUM LEVEL 136 MMOL/L (136-145)
== END ==
LOC: M SFHCCLAY 10:40
PROVIDERS: ATTEND Nurse Practitioner Family
DX: I11.9 Hypertensive heart disease without heart failure (principal)

== ENCOUNTER → 2022-10-20 | Outpatient (REF) | payer MEDICARE ==
[2022-10-20 18:15] LABS: BLOOD UREA NITROGEN 15 MG/DL (9-23); CALCIUM LEVEL 10.1 MG/DL (8.3-10.6); CARBON DIOXIDE LEVEL 29 MMOL/L (20-31); CHLORIDE LEVEL 99 MMOL/L (98-107); CHOLESTEROL LEVEL 130 MG/DL (<200); CHOLESTEROL RISK RATIO 2.17 (<5); CREATININE FOR GFR 0.88 MG/DL (0.55-1.30); GLOMERULAR FILTRATION RATE > 60.0 (>39); GLUCOSE, FASTING 89 MG/DL (74-106); HDL CHOLESTEROL 59.9 MG/DL (>40); LDL CHOLESTEROL 55.7 MG/DL (<100); NON-HDL-C 70.1 MG/DL; POTASSIUM SERUM 4.3 MMOL/L (3.5-5.1); SODIUM LEVEL 135 MMOL/L (136-145); TRIGLYCERIDES LEVEL 72 MG/DL (<150)
== END ==
LOC: M SFHCCLAY 13:24
PROVIDERS: ATTEND Nurse Practitioner Family
DX: I10 Essential (primary) hypertension (principal); E78.5 Hyperlipidemia, unspecified

== ENCOUNTER → 2023-03-22 | Outpatient (REF) | payer MEDICARE | LOC: M SFHCDERM 17:17 | PROVIDERS: ATTEND Physician Assistant | DX: C44.319 Basal cell carcinoma of skin of other parts of face (principal) ==

== ENCOUNTER → 2023-04-26 | Outpatient (REF) | payer MEDICARE ==
[2023-04-26 16:41] LABS: BLOOD UREA NITROGEN 16 MG/DL (9-23); CALCIUM LEVEL 10.8 MG/DL (8.3-10.6); CARBON DIOXIDE LEVEL 29 MMOL/L (20-31); CHLORIDE LEVEL 102 MMOL/L (98-107); CREATININE FOR GFR 0.82 MG/DL (0.55-1.30); GLOMERULAR FILTRATION RATE > 60.0 (>39); GLUCOSE, FASTING 85 MG/DL (74-106); POTASSIUM SERUM 4.6 MMOL/L (3.5-5.1); SODIUM LEVEL 138 MMOL/L (136-145)
== END ==
LOC: M SFHCCLAY 10:59
PROVIDERS: ATTEND Nurse Practitioner Family
DX: I10 Essential (primary) hypertension (principal)

== ENCOUNTER → 2023-05-19 | Outpatient (REF) | payer MEDICARE | LOC: M SFHCDERM 13:55 | PROVIDERS: ATTEND Dermatology | DX: L57.0 Actinic keratosis (principal) ==

== ENCOUNTER → 2024-06-01 | Outpatient (REF) | payer MEDICARE | LOC: M SFHCCLAY 14:30 | PROVIDERS: ATTEND Nurse Practitioner Family | DX: E78.5 Hyperlipidemia, unspecified (principal); I10 Essential (primary) hypertension; K21.9 Gastro-esophageal reflux disease without esophagitis; M81.0 Age-related osteoporosis without current pathological fracture ==

== ENCOUNTER → 2024-06-08 | Outpatient (REF) | payer MEDICARE ==
[2024-06-08 18:09] LABS: ALBUMIN 3.8 G/DL (3.2-5.2); ALKALINE PHOSPHATASE 89 U/L (35-104); ALT/SGPT 21 U/L (7.0-40); AST/SGOT 20 U/L (<34); BILIRUBIN,TOTAL 0.7 MG/DL (0.3-1.2); BLOOD UREA NITROGEN 14 MG/DL (9-23); CALCIUM LEVEL 10.3 MG/DL (8.3-10.6); CARBON DIOXIDE LEVEL 29 MMOL/L (20-31); CHLORIDE LEVEL 99 MMOL/L (98-107); CHOLESTEROL LEVEL 151 MG/DL (<200); CHOLESTEROL RISK RATIO 1.93 (<5); CREATININE FOR GFR 0.79 MG/DL (0.55-1.30); GLOMERULAR FILTRATION RATE > 60.0 (>39); GLUCOSE, FASTING 99 MG/DL (74-106); LDL CHOLESTEROL 60.8 MG/DL (<100); SODIUM LEVEL 134 MMOL/L (136-145); TOTAL PROTEIN 6.8 G/DL (5.7-8.2); TRIGLYCERIDES LEVEL 61 MG/DL (<150)
== END ==
LOC: M SFHCCLAY 10:15
PROVIDERS: ATTEND Nurse Practitioner Family
DX: I10 Essential (primary) hypertension (principal); E78.5 Hyperlipidemia, unspecified; K21.9 Gastro-esophageal reflux disease without esophagitis; M81.0 Age-related osteoporosis without current pathological fracture

== ENCOUNTER → 2024-12-17 | Outpatient (REF) | payer MEDICARE ==
[2024-12-17 17:52] LABS: ALT/SGPT 14.0 U/L (7.0-40); AST/SGOT 21.0 U/L (<34); CALCIUM LEVEL 9.8 MG/DL (8.3-10.6); CARBON DIOXIDE LEVEL 28.0 MMOL/L (20-31); CHLORIDE LEVEL 101.0 MMOL/L (98-107); CHOLESTEROL LEVEL 140.0 MG/DL (<200); CHOLESTEROL RISK RATIO 2.04 (<5); CREATININE FOR GFR 0.82 MG/DL (0.55-1.30); GLOMERULAR FILTRATION RATE 72.3 (>32); LDL CHOLESTEROL 53.8 MG/DL (<100); NON-HDL-C 71.6 MG/DL; POTASSIUM SERUM 4.5 MMOL/L (3.5-5.1); SODIUM LEVEL 138.0 MMOL/L (136-145); TRIGLYCERIDES LEVEL 89.0 MG/DL (<150)
== END ==
LOC: M SFHCCLAY 09:29
PROVIDERS: ATTEND Nurse Practitioner Family
DX: I10 Essential (primary) hypertension (principal); E78.5 Hyperlipidemia, unspecified; K21.9 Gastro-esophageal reflux disease without esophagitis; M81.0 Age-related osteoporosis without current pathological fracture